=== PATIENT | male | born 1960 | race Caucasian/White ===

== ENCOUNTER 2020-05-19 16:28 | Outpatient (REF) | payer OTHER, SELFPAY ==
--- NOTE | 2020-05-19 16:34 | XR_ITS ---
EXAMINATION: XR CHEST CLINICAL INFORMATION: Shortness of breath COMPARISON: 06/07/2016 TECHNIQUE: 2 views of the chest were obtained. FINDINGS: No significant abnormality is noted involving the heart, lungs, mediastinum, bony thorax or soft tissues. XR/XR chest 2V IMPRESSION: No acute cardiopulmonary process.
== END 2020-05-19 16:29 | disposition home or self-care (01) ==
LOC: HO.HMGCX 16:28
PROVIDERS: PCP Nurse Practitioner Family; Visit Provider Hospitalist
DX: R06.02 Shortness of breath (principal)
CPT/HCPCS: 71046

== ENCOUNTER → 2020-06-08 08:33 | Outpatient (REF) | payer OTHER, SELFPAY ==
--- NOTE | 2020-06-08 08:37 | ECG_ITS ---
Hook-up date: 2020-06-08 09:40:00 Duration: 27:03:00 Test Indications: SHORTNESS OF BREATH Medications: 78455 QRS complexes 26 Ventricular ectopics which represent <1 % of total QRS comp. 24 Supraventricular ectopics which represent <1 % of total QRS comp. * Paced QRS complexs which represent % of total QRS comp. VENTRICULAR ECTOPY 26 Isolated 0 Bigeminal Cycles 0 Couplets 0 Runs 0 Beats in Runs * Beats LONGEST at * BPM at :: -- * Beats FASTEST at * BPM at :: -- SUPRAVENTRICULAR ECTOPY 9 Isolated 1 Couplets 2 Runs 13 Beats in Runs 7 Beats LONGEST at 75 BPM at 11:21:40 2020-06-08 6 Beats FASTEST at 123 BPM at 18:05:30 2020-06-08 HEART RATES 51 MIN at 00:05:49 2020-06-09 71 AVG 108 MAX at 09:41:19 2020-06-08 LONGEST RR 1.2000 secs at 00:05:49 2020-06-09 S-T LEVELS Channel 1 - 128 mm at 09:40:00 2020-06-08 - 128 mm at 09:40:00 2020-06-08 Channel 2 - 128 mm at 09:40:00 2020-06-08 - 128 mm at 09:40:00 2020-06-08 Channel 3 - 128 mm at 02:85:91 -- - 128 mm at 02:85:91 Basic rhythm Normal sinus rhythm Baseline BBB Rare ectopics Patient reported symptom of constantine discomfort correlated with NSR Referred By: Kenan Cueto Overread By: CALEB MOULTON MD
--- NOTE | 2020-06-08 08:37 | CA_ITS ---
Transthoracic Echocardiogram Patient (Last, First, Middle): Sanket Nazario, Gender: Male Date of : 1960 Age: 59 Procedure Date: 06/08/2020 Procedure Type: Transthoracic Echocardiogram Location: OP Height: 177.8 cm Weight: 117.94 kg BSA: 2.33 m2 Heart Rate: bpm BP: 118 / 70 mmHg Print Project Manager: ARYAN Referring MD: Kenan Cueto DO Symptoms: R06.02 - Shortness of breath Study Quality: Fair Conclusions: - 1. Normal LV systolic function with mild LVH 2. Normal cardiac valvular Doppler 3. Normal RV systolic pressure 4. No pericardial effusion Findings Left Ventricle Normal left ventricular size and systolic function. There is mildly increased left ventricular wall thickness. The visually estimated ejection fraction is between 60-65%. Regional wall motion abnormalities can not be excluded due to suboptimal endocardial definition. Diastolic function is normal for age. Right Ventricle Mildly increased right ventricular cavity size. Atria The left atrium is likely dilated. Interatrial shunt cannot be excluded. The right atrium was not well visualized. Aortic Valve The aortic valve structure and function is likely normal. There is no aortic valve stenosis. There is no aortic valve regurgitation. Mitral Valve Normal mitral valve structure and function. There is trace mitral valve regurgitation. There is no mitral valve stenosis. Pulmonic Valve The pulmonic valve was not well visualized. Tricuspid Valve Likely normal tricuspid valve structure and function. There is trace tricuspid valve regurgitation. The right ventricular systolic pressure is normal. The right ventricular systolic pressure is 21 mmHg. There is no evidence of pulmonary hypertension. Great Vessels The aorta was not well visualized. The pulmonary artery was not well visualized. Venous The inferior vena cava is normal in size and collapses greater than 50% with inspiration. Pericardium/Pleural There is no evidence of pericardial effusion. Prior Study Comparison No significant change compared to prior study. Measurements 2D Linear Measurements IVSd: 1.13 0.6-0.9/0.6-1.0 cm LVIDd: 4.99 3.9-5.3/4.2-5.9 cm LVIDd Index: 2.14 2.4-3.2/2.2-3.1 cm/m2 LVIDs: 3.03 2.0-3.6 cm LVPWd: 1.10 0.7-1.1 cm Ao Root: 3.70 2.1-3.5 cm LA Diam: 3.80 2.7-3.8/3.0-4.0 cm LAIDs Index: 1.63 1.5-2.3 cm/m2 LV Mass: 302.55 67-162/88-224 g LV Mass Index: 129.85 43-95/49-115 g/m2 LVOT Diam: 2.00 3.0+(-)1.3 cm Mitral Valve MV Pk E: 0.72 MV PK A: 0.50 MV Decel Time: 145.00 E/A: 1.40 E'Lateral: 11.20 E'Medial: 7.16 E/E' Med: 10.10 E/E' Lat: 6.50 PHT: 43.00 MVA PHT: 5.12 Decel [place]: 4.98 Aortic Valve AoV Pk López: 1.24 AoV Pk Grad: 6.00 LVOT LVOT Pk López: 1.29 LVOT Mn López: 0.82 LVOT VTI: 0.29 LVOT Pk Grad: 7.00 LVOT Mn Grad: 3.00 LVOT Diam: 2.00 LVOT Area: 3.14 Diastolic Function MV Pk E: 0.72 MV Pk A: 0.50 E/A: 1.40 E'Medial: 7.16 E/E' Med: 10.10 E' Laterial: 11.20 E/E' Lat: 6.50 IVC Diam Exp: 1.53 Tricuspid Valve TR Pk López: 2.12 TR Pk Grad: 18.00 RA Press: 3.00 RVSP: 21.00 IVC Diam Exp: 1.53 Great Vessels Aorta Ao Root-2D: 3.70 2.0-3.7 cm Ao Asc: 3.50 2.1-3.4 cm Updated in Other Vendor System with Status of Final Anil Sloan MD electronically signed on 06/09/2020 2:54:07 PM with status of Final
== END ==
LOC: HO.CARD 08:33
PROVIDERS: Visit Provider Hospitalist
DX: R06.02 Shortness of breath (principal); R53.83 Other fatigue
CPT/HCPCS: 93225; 93226; 93306

== ENCOUNTER → 2020-06-20 08:24 | Outpatient (BNVA) | payer OTHER, SELFPAY | PROVIDERS: PCP Nurse Practitioner Family; Referring Provider Nurse Practitioner Family; Visit Provider Nurse Practitioner Family | DX: Z76.89 Persons encountering health services in other specified circumstances (principal) ==

== ENCOUNTER → 2020-07-26 12:45 | Outpatient (BNVA) | payer OTHER, SELFPAY | PROVIDERS: PCP Nurse Practitioner Family; Visit Provider Physician Assistant | DX: Z76.89 Persons encountering health services in other specified circumstances (principal) ==

== ENCOUNTER → 2020-08-11 08:23 | Outpatient (BNVA) | payer OTHER, SELFPAY | PROVIDERS: PCP Nurse Practitioner Family; Visit Provider Physician Assistant | DX: Z76.89 Persons encountering health services in other specified circumstances (principal) ==

== ENCOUNTER 2020-08-24 14:28 | Outpatient (REF) | payer OTHER, SELFPAY ==
[2020-08-24 15:33] LABS: MANUAL DIFF FLAG NO
[2020-08-24 15:34] LABS: Basophils Percent Auto 0.5 % (0-2); Eosinophils Absolute Auto 0.1 X10*3/uL (0.0-0.4); Eosinophils Percent Auto 1.5 % (0-4); Hemoglobin 14.6 g/dl (14.0-18.0); Imm Gran Abs Auto 0.01 X10*3/uL (0.00-0.03); Imm Gran Pct Auto 0.2 % (0.0-0.4); Lymphocytes Absolute Auto 1.2 X10*3/uL (1.2-4.9); Mean Corpuscular Volume 91.3 fL (80-98); Mean Platelet Volume 9.5 fL (9.4-12.4); Monocytes Absolute Auto 0.5 X10*3/uL (0.1-1.2); Monocytes Percent Auto 7.5 % (2-11); Neutrophils Absolute Auto 4.3 X10*3/uL (2.0-8.3); Neutrophils Percent Auto 70.3 % (45-73); Platelet Count 252 X10*3/uL (160-400); Red Blood Count 4.71 X10*6/uL (4.60-5.80); Red Cell Distribution Width 11.9 % (11.0-16.0); White Blood Count 6.1 X10*3/uL (4.8-10.8)
[2020-08-24 15:46] LABS: Estimated Average Glucose 108 mg/dL; Hemoglobin A1c % 5.4 %
[2020-08-24 16:02] LABS: Alanine Aminotransferase 43 U/L (0-40); Albumin Level 4.5 g/dL (3.5-5.0); Alkaline Phosphatase 81 U/L (39-117); Anion Gap 12 (12-20); Aspartate Amino Transferase 23 U/L (5-37); Bilirubin Total 0.9 mg/dL (0.0-1.0); Blood Urea Nitrogen 19 mg/dL (9-16); C Reactive Protein 0.36 mg/dL (< or = 0.50); Calcium 9.3 mg/dL (8.4-10.2); Carbon Dioxide 30 mmol/L (22-29); Chloride 102 mmol/L (96-108); Cholesterol 105 mg/dL; Estimated Glomerular Filt Rate > 60; Glucose Random 115 mg/dL (60-115); HDL Cholesterol 31 mg/dL; Iron 59 mcg/dL (45-160); LDL Cholesterol Calculated 59 mg/dl; Percent Iron Saturation 18 % (15-50); Potassium 3.9 mmol/l (3.3-5.1); Sodium 140 mmol/L (135-145); Total Iron Binding Capacity 328 mcg/dL (228-428); Total Protein 7.1 g/dL (6.5-8.0); Triglycerides 79 mg/dL; Unsaturated Iron Binding 269 ug/dL
[2020-08-24 16:25] LABS: Ferritin 271 ng/mL (20-250); TSH reflex Free T4 0.98 mIU/mL (0.32-4.0); Vitamin D 25-OH Total 24.5 ng/mL (>30)
[2020-08-24 16:35] LABS: Folate 8.4 ng/mL (> or = 4.0); Vitamin B12 280 pg/mL (200-900)
[2020-08-25 10:52] LABS: Insulin Level Total 45.5 uIU/mL
[2020-08-25 15:42] LABS: Calcium (PTHI) 9.7 mg/dL (8.6-10.3); PTHI 60 pg/mL (14-64)
[2020-08-27 01:53] LABS: Zinc 75 mcg/dL (60-130)
[2020-08-29 12:27] LABS: Vitamin B1 9 nmol/L (8-30)
[2020-08-31 09:57] LABS: Vitamin A 43 mcg/dL (38-98)
== END 2020-08-24 14:29 | disposition home or self-care (01) ==
LOC: HO.LAB 14:28
PROVIDERS: PCP Nurse Practitioner Family; Visit Provider Physician Assistant
DX: E66.9 Obesity, unspecified (principal); Z68.35 Body mass index [BMI] 35.0-35.9, adult; Z90.3 Acquired absence of stomach [part of]; Z98.84 Bariatric surgery status; Z98.890 Other specified postprocedural states
CPT/HCPCS: 36415; 80053; 80061; 82306; 82607; 82728; 82746; 83036; 83525; 83540; 83970; 84425; 84443; 84590; 84630; 85025; 86140

== ENCOUNTER → 2020-09-01 08:09 | Outpatient (BNVA) | payer OTHER, SELFPAY | PROVIDERS: PCP Nurse Practitioner Family; Visit Provider Dietitian, Registered ==

== ENCOUNTER → 2020-09-22 08:15 | Outpatient (BNVA) | payer OTHER, SELFPAY | PROVIDERS: PCP Nurse Practitioner Family; Visit Provider Physician Assistant ==

== ENCOUNTER → 2020-09-25 08:33 | Outpatient (BNVA) | payer OTHER, SELFPAY | PROVIDERS: PCP Nurse Practitioner Family; Visit Provider Physician Assistant ==

== ENCOUNTER → 2020-10-20 08:20 | Outpatient (BNVA) | payer OTHER, SELFPAY | PROVIDERS: PCP Nurse Practitioner Family; Visit Provider Physician Assistant ==

== ENCOUNTER → 2020-11-23 10:04 | Outpatient (BNVA) | payer OTHER, SELFPAY | PROVIDERS: PCP Nurse Practitioner Family; Visit Provider Dietitian, Registered | DX: E66.9 Obesity, unspecified (principal); Z68.31 Body mass index [BMI] 31.0-31.9, adult | CPT/HCPCS: 97803 ==

== ENCOUNTER → 2020-12-22 08:46 | Outpatient (BNVA) | payer OTHER, SELFPAY | PROVIDERS: PCP Nurse Practitioner Family; Visit Provider Physician Assistant ==

== ENCOUNTER → 2021-01-26 10:05 | Outpatient (BNVA) | payer OTHER, SELFPAY | PROVIDERS: PCP Nurse Practitioner Family; Referring Provider Nurse Practitioner Family; Visit Provider Physician Assistant ==

== ENCOUNTER → 2021-02-27 08:11 | Outpatient (BNVA) | payer OTHER, SELFPAY | PROVIDERS: PCP Nurse Practitioner Family; Visit Provider Dietitian, Registered | DX: E66.9 Obesity, unspecified (principal); Z68.29 Body mass index [BMI] 29.0-29.9, adult | CPT/HCPCS: 97803 ==

== ENCOUNTER → 2021-04-06 08:30 | Outpatient (BNVA) | payer OTHER, SELFPAY | PROVIDERS: PCP Nurse Practitioner Family; Referring Provider Nurse Practitioner Family; Visit Provider Physician Assistant ==

== ENCOUNTER → 2021-05-16 08:33 | Outpatient (BNVA) | payer OTHER, SELFPAY | PROVIDERS: PCP Nurse Practitioner Family; Referring Provider Nurse Practitioner Family; Visit Provider Physician Assistant ==

== ENCOUNTER → 2021-07-06 11:15 | Outpatient (BNVA) | payer OTHER, SELFPAY | PROVIDERS: PCP Nurse Practitioner Family; Referring Provider Nurse Practitioner Family; Visit Provider Physician Assistant ==

== ENCOUNTER → 2021-08-09 08:32 | Outpatient (BNVA) | payer OTHER, SELFPAY | PROVIDERS: PCP Nurse Practitioner Family; Referring Provider Nurse Practitioner Family; Visit Provider Physician Assistant ==

== ENCOUNTER → 2021-11-05 08:34 | Outpatient (BNVA) | payer OTHER, SELFPAY | PROVIDERS: PCP Nurse Practitioner Family; Visit Provider Physician Assistant | DX: Z13.89 Encounter for screening for other disorder (principal) ==

== ENCOUNTER 2021-11-14 09:15 | Outpatient (REF) | payer OTHER, SELFPAY ==
[2021-11-14 09:46] LABS: IDNOW Serial# 08D9AD1C
[2021-11-14 09:47] LABS: COVID-19 Test Positive (Negative)
== END 2021-11-14 09:16 | disposition home or self-care (01) ==
LOC: HO.LAB 09:15
PROVIDERS: PCP Nurse Practitioner Family; Visit Provider Internal Medicine
DX: Z20.822 Contact with and (suspected) exposure to COVID-19 (principal)
CPT/HCPCS: 87635; C9803

== ENCOUNTER → 2021-12-03 08:29 | Outpatient (BNVA) | payer OTHER, SELFPAY | PROVIDERS: PCP Nurse Practitioner Family; Visit Provider Physician Assistant | DX: E66.9 Obesity, unspecified (principal) ==

== ENCOUNTER → 2021-12-11 08:36 | Outpatient (BNVA) | payer OTHER, SELFPAY | PROVIDERS: PCP Nurse Practitioner Family; Visit Provider Nurse Practitioner Family | DX: Z13.89 Encounter for screening for other disorder (principal) ==

== ENCOUNTER 2021-12-26 08:41 | Outpatient (REF) | payer OTHER, SELFPAY ==
[2021-12-26 11:36] LABS: Appearance Urine CLEAR; Color Urine YELLOW; Glucose Urine UA NEG (NEG); Leukocyte Esterase Urine NEG (NEG); Nitrite Urine NEG (NEG); PH 5.5 (5.0-8.0); Specific Gravity - Urine >= 1.030 (1.005-1.025); Urine Blood NEG (NEG); Urine Ketones NEG (NEG); Urine Protein NEG (NEG-TRACE)
[2021-12-26 12:19] LABS: Prostate Specific Antigen Scr 3.13 ng/mL (<0.05-4.0); TSH reflex Free T4 1.18 uIU/mL (0.32-4.0)
[2021-12-26 12:25] LABS: Alanine Aminotransferase 28 U/L (0-40); Albumin Level 4.1 g/dL (3.5-5.0); Alkaline Phosphatase 68 U/L (39-117); Anion Gap 12 (12-20); Aspartate Amino Transferase 17 U/L (5-37); Bilirubin Total 0.7 mg/dL (0.0-1.0); Blood Urea Nitrogen 18 mg/dL (9-16); Calcium 9.2 mg/dL (8.4-10.2); Carbon Dioxide 24 mmol/L (22-29); Chloride 107 mmol/L (96-108); Cholesterol 138 mg/dL; Estimated Glomerular Filt Rate > 60; Glucose Fasting 101 mg/dL (60-99); HDL Cholesterol 42 mg/dL; LDL Cholesterol Calculated 84 mg/dl; Potassium 3.8 mmol/L (3.3-5.1); Sodium 139 mmol/L (135-145); Total Protein 6.8 g/dL (6.5-8.0); Triglycerides 64 mg/dL
== END 2021-12-26 08:42 | disposition home or self-care (01) ==
LOC: HO.HMGCLDS 08:41
PROVIDERS: Visit Provider Nurse Practitioner Family
DX: Z00.00 Encounter for general adult medical examination without abnormal findings (principal); Z12.5 Encounter for screening for malignant neoplasm of prostate
CPT/HCPCS: 36415; 80053; 80061; 81003; 84153; 84443

== ENCOUNTER → 2022-02-11 11:01 | Outpatient (REF) | payer OTHER, SELFPAY | LOC: HO.SL 11:01 | PROVIDERS: PCP Nurse Practitioner Family; Visit Provider Nurse Practitioner Family | DX: E66.9 Obesity, unspecified (principal); G47.33 Obstructive sleep apnea (adult) (pediatric); R53.83 Other fatigue; R06.83 Snoring | CPT/HCPCS: 95806 ==

== ENCOUNTER 2022-08-28 15:12 | Outpatient (REF) | payer OTHER, SELFPAY ==
--- NOTE | ~2022-08-28 | MR_ITS ---
MRI OF THE BRAIN WITHOUT IV CONTRAST INDICATION: Speech disturbance. COMPARISON: None available. TECHNIQUE: Multiplanar multisequence MR imaging of the brain was obtained without IV contrast. FINDINGS: There is no hydrocephalus, extra-axial surface collection, or herniation. There is mild chronic microangiopathy. The major flow voids at the skull base are preserved. There is no acute infarct on diffusion-weighted imaging. There is no intracranial hemorrhage on the gradient recalled echo acquisition. The midline structures are normal. The cerebellar tonsils are normally positioned. The cerebellum and brainstem are normal. The craniocervical junction is normal. Osseous marrow signal intensity is homogenous. There is a 3.8 cm simple appearing lipoma within the posterior right scalp. MR/MR head/brain wo con IMPRESSION: - No acute intracranial findings. - There is mild chronic microangiopathy. - There is a 3.8 cm simple appearing lipoma within the posterior right scalp.
== END 2022-08-28 15:13 | disposition home or self-care (01) ==
LOC: HO.MRI 15:12
PROVIDERS: PCP Nurse Practitioner Family; Visit Provider Nurse Practitioner Family
DX: R47.89 Other speech disturbances (principal); R41.3 Other amnesia; Z82.0 Family history of epilepsy and other diseases of the nervous system
CPT/HCPCS: 70551

== ENCOUNTER → 2022-09-23 08:45 | Outpatient (BNVA) | payer OTHER, SELFPAY | PROVIDERS: PCP Nurse Practitioner Family; Referring Provider Nurse Practitioner Family; Visit Provider Internal Medicine | DX: I25.10 Atherosclerotic heart disease of native coronary artery without angina pectoris (principal); I10 Essential (primary) hypertension; E78.00 Pure hypercholesterolemia, unspecified | CPT/HCPCS: 93005 ==

== ENCOUNTER 2022-10-26 15:57 | Outpatient (REF) | payer OTHER, SELFPAY ==
[2022-10-26 16:42] LABS: Influenza A PCR NEGATIVE (Negative); Influenza B PCR NEGATIVE (Negative); Resp Syncy Virus RNA Qual PCR NEGATIVE (Negative); SARS COV2 PCR INHOUSE NEGATIVE (Negative)
== END 2022-10-26 15:58 | disposition home or self-care (01) ==
LOC: HO.LNP 15:57
PROVIDERS: Visit Provider Physician Assistant Medical
DX: R05.9 Cough, unspecified (principal); Z20.822 Contact with and (suspected) exposure to COVID-19
CPT/HCPCS: 0241U

== ENCOUNTER 2023-09-29 09:07 | Outpatient (AMB) | payer OTHER, SELFPAY ==
--- NOTE | 2023-09-29 09:08 | MHC.OFFVIS ---
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 Allergies codeine Allergy (Unknown, Verified 09/29/23 09:11) due to Hx of addiction, stays away from opiods Codeine Sulfate Allergy (Unknown, Uncoded 09/29/23 09:11) hx of etoh abuse, pt does not want to be prescribed opiods OPIODS Allergy (Unknown, Uncoded 09/29/23 09:11) hx of etoh abuse, pt does not want to be prescribed opiods Medication List - Last Reconciled 09/29/23 by Medardo Epperson MD atorvastatin 40 mg PO DAILY 90 days benzonatate 200 mg PO BID PRN hydrochlorothiazide 25 mg PO DAILY irbesartan 300 mg PO DAILY HPI HPI Comments History of Present Illness Details Sanket returns for follow-up regarding coronary artery disease. To recall, strong family history of cardiac issues in family members including father, sister. Patient himself with multiple cardiovascular risk factors including obesity, hypertension, dyslipidemia, NIESHA. Based on calcium scoring, he does have CAD. No clear-cut angina. Unfortunately, he has gained a lot of weight. [facility] Medical History AA (alcohol abuse) Coronary artery calcification seen on CT scan Hemorrhoid Melanoma Obesity Surgical History Hx of wisdom tooth extraction Family History Mother Alzheimer disease COPD (chronic obstructive pulmonary disease) Father No problems noted. Son No problems noted. Daughter No problems noted. Sister Myocardial infarction Other Mental health disorder Substance use disorder Social History Housing: House Alcohol intake: former Patient Tobacco Use Status: Current someday Tobacco user Tobacco use type: Cigar e-Cigarette/Vaping Use: Never Used Second Hand Smoke Exposure: No Current occupational status: employed Cognitive needs: No Hearing needs: No Vision needs: No Review of Systems Const Denies weakness ENT Denies dizziness Card Denies chest pain with activity, Denies syncope, Denies rapid heart rate, Denies pedal edema, Denies edema, Denies leg edema, Denies lightheadedness, Denies palpitations and Denies orthopnea Resp Denies cough GI Denies hematochezia and Denies change in stool character Musc Denies abnormal gait, Denies muscle cramps, Denies muscle weakness, Denies numbness, Denies radiating pain into limb and Denies tingling Neuro Denies abnormal gait, Denies dizziness, Denies syncope, Denies numbness, Denies tingling and Denies weakness Endo Denies palpitations Physical Exam Vital Signs: Last Vital Signs Pulse 69 09/29/23 09:10 BP 130/86 09/29/23 09:10 BMI result Body Mass Index 36.1 Const General: comfortable and no acute distress Orientation/consciousness: patient oriented x3 HEENT Other: Unremarkable Head: Yes normal to inspection Neck Neck: Yes normal visual inspection Chest Chest palpation & inspection: normal inspection of the chest Resp Auscultation: clear to auscultation bilaterally Cardio Palpation: normal PMI Heart sounds: S1 normal heart sound present, S2 normal heart sound present, no gallops, no murmurs and no rubs GI Palpation (GI): Soft to palpation Back/Spine/Pelvis Other: unremarkable Skin General skin exam: no rashes or lesions noted Neuro General: patient oriented x3 Extrem General: Yes normal to inspection Psych Mental Status: mental status grossly normal Office Procedures EKG Details: EKG with sinus rhythm at 69/Min; incomplete right bundle-branch block pattern; [place] [address]-[id number], Complete Assessment & Plan Assessment & Plan (1) Coronary artery calcification seen on CT scan: Code(s): I25.10 - Atherosclerotic heart disease of [place] coronary artery without angina pectoris (2) Hypertension: Code(s): I10 - Essential (primary) hypertension Qualifiers: Hypertension type: primary hypertension Qualified Code(s): I10 - Essential (primary) hypertension (3) Hypercholesteremia: Code(s): E78.00 - Pure hypercholesterolemia, unspecified Plan Cardiac studies reviewed. Echocardiogram from 2019 with LVEF of 60-65% and otherwise unremarkable. In the exercise stress test from 2019, he was able to exercise on Rom protocol for 7 minutes and 2 seconds and reached 8.6 Mets. No angina and no EKG evidence of ischemia. Prior calcium scoring CT scan with a score of 58. It was repeated last year and that showed score of 134 distributed between the LAD and circumflex. Findings discussed with patient. He is aware of the coronary disease findings. He understands the main issues his weight as it has been up and down. He lost about 50 lb or so but then gained almost all of it back. He also drives to [place] few times a month which adds more stress an interface lifestyle. Strongly recommend that he loses as much weight is reasonably possible and willing try again. Blood pressure stable on current meds. We need to check lipids again. He is on statins. May need adjustments accordingly. With regard to NIESHA history, he does not like CPAP. However, after he lost lot of weight sleep apnea apparently did improve but there is high good chance that it came back as he gained the weight back. Again weight loss is the main goal to sort all these out. We had a long discussion about the above and he understands. Follow-up in 6 months. Advised to get some labs done. Total time spent including review of data, counseling, documentation, coordination of care 32 minutes. Orders: Orders Lipid Panel 01/22/23 I10 - Essential (primary) hypertension Coding Level of Care Code Est Pt Level 4 (69093) Diagnoses Coronary artery calcification seen on CT scan I25.10 Primary hypertension I10 Hypertension type: primary hypertension Hypercholesteremia E78.00 CPT Codes EKG - CPT: 31098-Debavwuiqtifquyve, Complete ([id number])
[2023-09-29 09:10] VITALS: BP 130/86; PULSE 69; BMI 36.1
== END 2023-09-29 09:37 | disposition home or self-care (01) ==
PROVIDERS: Visit Provider Internal Medicine
DX: I25.10 Atherosclerotic heart disease of native coronary artery without angina pectoris (principal); I10 Essential (primary) hypertension; E78.00 Pure hypercholesterolemia, unspecified
CPT/HCPCS: 93010; 99214

== ENCOUNTER → 2023-09-29 09:07 | Outpatient (BNVA) | payer OTHER, SELFPAY | PROVIDERS: Visit Provider Internal Medicine | DX: I25.10 Atherosclerotic heart disease of native coronary artery without angina pectoris (principal); I10 Essential (primary) hypertension; E78.00 Pure hypercholesterolemia, unspecified | CPT/HCPCS: 93005 ==

== ENCOUNTER 2023-11-12 08:10 | Outpatient (REF) | payer OTHER, SELFPAY ==
[2023-11-12 10:20] LABS: MANUAL DIFF FLAG NO
[2023-11-12 10:28] LABS: Appearance Urine Clear; Color Urine Yellow; Glucose Urine UA Negative (Negative); Leukocyte Esterase Urine Negative (Negative); Nitrite Urine Negative (Negative); PH 6.5 (5.0-9.0); Urine Blood Negative (Negative); Urine Ketones Negative (Negative); Urine Protein Negative (Neg-Trace)
[2023-11-12 10:33] LABS: Basophils Absolute Auto 0.1 X10*3/uL (0.0-0.2); Basophils Percent Auto 0.7 % (0-2); Eosinophils Absolute Auto 0.2 X10*3/uL (0.0-0.4); Eosinophils Percent Auto 2.9 % (0-4); Hematocrit 43.2 % (42.0-52.0); Hemoglobin 14.8 g/dl (14.0-18.0); Imm Gran Abs Auto 0.09 X10*3/uL (0.00-0.03); Imm Gran Pct Auto 1.2 % (0.0-0.4); Lymphocytes Absolute Auto 1.4 X10*3/uL (1.2-4.9); Lymphocytes Percent Auto 17.9 % (20-40); Mean Corpuscular HGB Conc 34.3 g/dl (31.0-36.0); Mean Corpuscular Hemoglobin 31.1 pg (27.0-33.0); Mean Corpuscular Volume 90.8 fL (80.0-98.0); Mean Platelet Volume 9.3 fL (9.4-12.4); Monocytes Percent Auto 13.2 % (2-11); Neutrophils Absolute Auto 4.9 x10*3/uL (2.0-8.3); Neutrophils Percent Auto 64.1 % (45-73); Platelet Count 227 X10*3/uL (160-400); Red Blood Count 4.76 X10*6/uL (4.60-5.80); Red Cell Distribution Width 12.7 % (11.0-16.0); White Blood Count 7.6 X10*3/uL (4.8-10.8)
[2023-11-12 11:29] LABS: Alanine Aminotransferase 36 U/L (0-40); Albumin Level 3.9 g/dL (3.5-5.0); Alkaline Phosphatase 80 U/L (39-117); Anion Gap 7 (12-20); Aspartate Amino Transferase 21 U/L (5-37); Bilirubin Total 0.9 mg/dL (0.0-1.0); Blood Urea Nitrogen 16 mg/dL (9-16); Carbon Dioxide 30 mmol/L (22-29); Chloride 105 mmol/L (96-108); Cholesterol 131 mg/dL (<200); Estimated Glomerular Filt Rate > 60; Glucose Fasting 109 mg/dL (60-99); HDL Cholesterol 39 mg/dL (>40); LDL Cholesterol Calculated 73 mg/dL (<100); Potassium 4.2 mmol/L (3.3-5.1); Sodium 138 mmol/L (135-145); Total Protein 6.6 g/dL (6.5-8.0); Triglycerides 98 mg/dL (<150)
[2023-11-12 11:46] LABS: TSH reflex Free T4 1.09 uIU/mL (0.32-4.0)
== END 2023-11-12 08:11 | disposition home or self-care (01) ==
LOC: HO.HMGCLDS 08:10
PROVIDERS: PCP Nurse Practitioner Family; Visit Provider Nurse Practitioner Family
DX: Z12.5 Encounter for screening for malignant neoplasm of prostate (principal); I10 Essential (primary) hypertension
CPT/HCPCS: 36415; 80053; 80061; 81003; 84153; 84443; 85025

== ENCOUNTER 2023-11-18 13:54 | Outpatient (AMB) | payer OTHER, SELFPAY ==
[2023-11-18 13:55] VITALS: BP 130/80; PULSE 86; O2SAT 98; BMI 35.4
--- NOTE | 2023-11-18 13:55 | MHC.PC.OV ---
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 Accompanied by: Self / Same As Patient Allergies codeine Allergy (Unknown, Verified 11/18/23 13:56) due to Hx of addiction, stays away from opiods Codeine Sulfate Allergy (Unknown, Uncoded 09/29/23 09:11) hx of etoh abuse, pt does not want to be prescribed opiods OPIODS Allergy (Unknown, Uncoded 09/29/23 09:11) hx of etoh abuse, pt does not want to be prescribed opiods Medication List - Last Reconciled 11/18/23 by ELOISE Abdullahi atorvastatin 40 mg PO DAILY 90 days hydrochlorothiazide 25 mg PO DAILY irbesartan 300 mg PO DAILY Tobacco use date assessed: 11/18/23 Dental Screening Dental Screen Date: 11/18/23 Did you have a dental visit in the last 12 months?: Yes Did you have a dental problem in the last 6 months where you did not have access to dental care?: No Was dental information given to patient?: Patient has dentist HPI F/U on cough that has been present for 7+mnths HPI Details Pt c/o cough for approximately 1 year. He reports that the cough can be either dry or wet. Pt reports that this cough happens at different times of day and has no known triggers. He describes a tickle in his throat followed by a deep cough. Pt reportedly had a chest XR in July which was negative, missing results. ? relation to long COVID. He states that tessalon perles did help but the cough returned after finishing the prescription. On exam today, with inhalation and exhalation, pt developed cough (bronchospastic like). ? relation to irbesartan use. Will order chest CT, blood work, and PFT testing. Denies fever, chills, chest pain, and shortness of breath. [facility] Medical History AA (alcohol abuse) Coronary artery calcification seen on CT scan Hemorrhoid Melanoma Obesity Surgical History Hx of wisdom tooth extraction Family History Mother Alzheimer disease COPD (chronic obstructive pulmonary disease) Father No problems noted. Son No problems noted. Daughter No problems noted. Sister Myocardial infarction Other Mental health disorder Substance use disorder Social History Housing: House Alcohol intake: former Patient Tobacco Use Status: Current someday Tobacco user Tobacco use type: Cigar e-Cigarette/Vaping Use: Never Used Second Hand Smoke Exposure: No Current occupational status: employed Cognitive needs: No Hearing needs: No Vision needs: No Questionnaire PHQ-9 Over the last 2 weeks, how often have you been bothered by any of the following problems? 1. Little interest or pleasure in doing things: not at all 2. Feeling down, depressed, or hopeless: not at all 3. Trouble falling or staying asleep, or sleeping too much: not at all 4. Feeling tired or having little energy: not at all 5. Poor appetite or overeating: not at all 6. Feeling bad about yourself - or that you are a failure or have let yourself or your family down: not at all 7. Trouble concentrating on things, such as reading the newspaper or watching television: not at all 8. Moving or speaking so slowly that other people could have noticed. Or the opposite - being so fidgety or restless that you have been moving around a lot more than usual: not at all 9. Thoughts that you would be better off or of hurting yourself in some way: not at all Total score: 0 Depression Screening Interpretation: Negative Depression Screening Done: Yes 40272 - PHQ-9 Billing: Yes Source: Developed by Drs. Frankie Guillen, Atiya Stafford, Torito Wagner and colleagues, with an educational kyler from [employer]. Thrive Questionnaire Date Thrive assessed: 11/18/23 I am a: Patient What is your living situation today?: I have a steady place to live Within the past 12 months, did the food you bought not last and you didn't have the money to get more?: Never true Within the past 12 months, did you worry whether your food would run out before you got money to buy more?: Never true Do you have trouble paying for medicines?: No Do you have trouble getting transportation to medical appointments?: No Do you have trouble paying your heating and electricity bill?: No Do you have trouble taking care of your child, family member or friend?: No Do you have trouble with day-to-day activities such as bathing, preparing meals, shopping, managing finances, etc.?: No Are you currently unemployed and looking for a job?: No Are you interested in more education?: No Please select the resources that you would like help with: None Currently or been in a relationship where the following occur: no concerns reported THRIVE Score: 0 AUDIT C Alcohol Use Questionnaire (AUDIT-C) 1. How often do you have a drink containing alcohol?: Never 3. How often do you have six or more drinks on one occasion?: Never Total Score: 0 Score Reviewed/Action Taken: Yes REBEKA-7 AMB Questionnaire REBEKA-7 Date REBEKA - 7 assessed: 11/18/23 Feeling nervous, anxious, or on edge: 0 = Not at all Not being able to stop or control worryin = Not at all Worrying too much about different things: 0 = Not at all Trouble relaxin = Not at all Being so restless that it is hard to sit still: 0 = Not at all Becoming easily annoyed or irritable: 0 = Not at all Feeling afraid as if something awful might happen: 0 = Not at all Total REBEKA-7 score (0-4 normal; 5-9 mild; 10-14 moderate; 15-21 severe): 0 Source: Developed by Drs. Frankie Guillen, Atiya Stafford, Torito Wagner and colleagues, with an educational kyler from [employer]. REBEKA-7 Assessment Billing REBEKA-7 Assessment Tool: REBEKA-7 Assessment 87356 Review of Systems Const Reports as per HPI Physical exam (Primary Care) Vital Signs: Last Vital Signs Pulse 86 11/18/23 13:55 BP 130/80 11/18/23 13:55 Pulse Ox 98 11/18/23 13:55 Oxygen Delivery Method Room Air 11/18/23 13:55 BMI result Body Mass Index 35.4 Tobacco/Smoking Status: Tobacco use Status Tobacco use date assessed 11/18/23 11/18/23 13:57 Patient Tobacco Use Status Current someday Tobacco 11/18/23 13:57 Tobacco use type Cigar 11/18/23 13:57 e-Cigarette/Vaping Use Never Used 11/18/23 13:57 PHQ-9: PHQ-9 Score PHQ-9: Total score 0 11/18/23 14:11 Depression Screening Interpretation: Negative Thrive Assessment: Date of Thrive Assessment Date Thrive assessed 11/18/23 11/18/23 14:11 Currently or been in a relationship where the following occur: no concerns reported Const General: cooperative Nutritional Appearance: obese Orientation/consciousness: patient oriented x3 Resp Other: bronchospastic cough during exam Effort & Inspection: normal respiratory effort and Actively coughing Auscultation: clear to auscultation bilaterally Cardio Rate: regular rate Rhythm: regular rhythm Heart sounds: S1 normal heart sound present and S2 normal heart sound present Neuro General: patient oriented x3 Psych Appearance: grossly normal Mental Status: mental status grossly normal Speech and movement: Normal speech and movement present Affect: normal affect Attitude: cooperative Thought process: Normal thought process present Thought content: Normal thought content present Insight: Good insight present (Psych) Judgement: Good judgement present (Psych) Assessment and Plan Assessment & Plan (1) Chronic cough: Code(s): R05.3 - Chronic cough Plan The patient agreed to the use of a medical transcription supervisor for this encounter. Scribed for ELOISE Smith by Luz Maria Fish medical transcription supervisor, on 11/18/2023 at 14:10 EST. Orders: Orders PFT pulmonary function test Today R05.3 - Chronic cough Resp Allergy Profile Region I Today R05.3 - Chronic cough Immunoglobulins,IgG IgA IgM Today R05.3 - Chronic cough Complete Blood Count Auto Diff Today R05.3 - Chronic cough CT chest wo IV con Today R05.3 - Chronic cough Immunoglobulin G Today R05.3 - Chronic cough Coding Level of Care Code Est Pt Level 3 (14661) Diagnoses Chronic cough R05.3 Additional Codes REBEKA-7 Assessment Billing - REBEKA-7 Assessment Tool: REBEKA-7 Assessment 15710 ([id number])
== END 2023-11-18 16:19 | disposition home or self-care (01) ==
LOC: HO.HMGC 13:54
PROVIDERS: PCP Nurse Practitioner Family; Visit Provider Nurse Practitioner Family
DX: R05.3 Chronic cough (principal)
CPT/HCPCS: 99213

== ENCOUNTER 2023-11-20 12:58 | Outpatient (REF) | payer OTHER, SELFPAY ==
[2023-11-20 16:04] LABS: MANUAL DIFF FLAG NO
[2023-11-20 16:12] LABS: Basophils Percent Auto 0.6 % (0-2); Eosinophils Absolute Auto 0.2 X10*3/uL (0.0-0.4); Eosinophils Percent Auto 2.5 % (0-4); Hematocrit 42.5 % (42.0-52.0); Hemoglobin 14.7 g/dl (14.0-18.0); Imm Gran Abs Auto 0.03 X10*3/uL (0.00-0.03); Imm Gran Pct Auto 0.5 % (0.0-0.4); Lymphocytes Absolute Auto 1.2 X10*3/uL (1.2-4.9); Lymphocytes Percent Auto 19.1 % (20-40); Mean Corpuscular HGB Conc 34.6 g/dl (31.0-36.0); Mean Corpuscular Hemoglobin 30.8 pg (27.0-33.0); Mean Corpuscular Volume 88.9 fL (80.0-98.0); Monocytes Absolute Auto 0.5 X10*3/uL (0.1-1.2); Monocytes Percent Auto 8.2 % (2-11); Neutrophils Absolute Auto 4.4 x10*3/uL (2.0-8.3); Neutrophils Percent Auto 69.1 % (45-73); Platelet Count 250 X10*3/uL (160-400); Red Blood Count 4.78 X10*6/uL (4.60-5.80); Red Cell Distribution Width 12.4 % (11.0-16.0); White Blood Count 6.3 X10*3/uL (4.8-10.8)
[2023-11-21 13:43] LABS: IgA 248 mg/dL (70-320); IgG 902 mg/dL (600-1540); IgM 112 mg/dL (50-300)
== END 2023-11-20 12:59 | disposition home or self-care (01) ==
LOC: HO.HMGCLDS 12:58
PROVIDERS: PCP Nurse Practitioner Family; Visit Provider Nurse Practitioner Family
DX: R05.3 Chronic cough (principal)
CPT/HCPCS: 36415; 82784; 85025

== ENCOUNTER 2024-01-07 13:08 | Outpatient (REF) | payer OTHER, SELFPAY ==
--- NOTE | ~2024-01-07 | CT_ITS ---
EXAMINATION: CT CHEST WITHOUT CONTRAST CLINICAL INFORMATION: Chronic cough, 63-year-old male. COMPARISON: CT chest 06/19/2015. Chest x-ray 05/19/2020. TECHNIQUE: Multidetector volumetric CT imaging of the chest was done. Axial MIP volume rendering provided. Sagittal and coronal reformatted images were obtained. This CT examination was performed using dose optimization techniques as appropriate, variously including the following: *Automated exposure control *Adjustment of mA and/or kV according to patient size (this includes techniques or standardized protocols for targeted exams where dose is matched to indication/reason for exam; i.e. extremities or head) *Use of iterative reconstruction technique DLP: 257 mGy-cm Please note, due to [employer] technical systems and internal issues, this examination was not available for dictation until 02/10/2024. FINDINGS: CERTIFIED MEDICAL TRANSCRIPTIONIST: No findings. LUNGS: -Lungs are clear bilaterally and free from consolidation, interstitial disease or groundglass opacities. -Mild parenchymal scarring with focal traction bronchiectasis is present in the posterior basal left lower lobe, unchanged from prior exam from 2014. Mild associated left lower lobe volume loss is present. No bronchial wall thickening or definite endobronchial filling defect is noted. -Remainder of the bilateral pulmonary bronchi and airways are normal in appearance. -Stable 3 mm groundglass nodule right upper lobe along minor fissure, consistent with intrapulmonary lymph node and unchanged (series 5, image 275). -Stable 3 mm nodule within the mid right major fissure (series 5, image 270), also consistent with intrapulmonary lymph node and unchanged. -Stable 4 mm subpleural nodule in the right lower lobe laterally, with pleural tag (series 5, image 351) consistent with intrapulmonary lymph node and unchanged. -Stable 2 and 3 mm nodules in subpleural peripheral posterior right lower lobe (series 5, images 371, 376). -There are no left-sided nodules. -There are no new or suspicious nodules. MEDIASTINUM: -Normal thyroid. -No adenopathy is present. -Esophagus appears grossly normal with a probable small type I hiatus hernia. -Normal heart size. -No pericardial effusion. -The aorta and main pulmonary artery appear normal. -Great vessels branch normally. CORONARY ARTERY CALCIFICATION: Mild LAD and minimal circumflex artery calcification. PLEURA: There is no pleural effusion. No pleural mass or thickening. AXILLA AND CHEST WALL: No lymphadenopathy. There is mild bilateral male gynecomastia. No additional chest wall abnormality. UPPER ABDOMEN: Small subcentimeter cyst in segment 8 of the liver. Upper abdominal contents otherwise normal. OSSEOUS STRUCTURES: No suspicious lytic or blastic bone lesion. Mild spinal degenerative changes. Mild bilateral shoulder joint degenerative changes. CT/CT chest wo IV con IMPRESSION: 1. No active pulmonary disease identified. 2. Stable region of protocol scarring in the posterior basal left lower lobe, with mild focal traction bronchiectasis. 3. No bronchial wall thickening or evidence of bronchitis. No endobronchial filling defects. 4. Unchanged right-sided pulmonary nodules, largest 4 mm, all which appear related to probable intrapulmonary lymph nodes. No new nodules. 5. Additional ancillary findings as detailed in the body of the report. Fleischner guidelines were followed.
== END 2024-01-07 13:09 | disposition home or self-care (01) ==
LOC: HO.CT 13:08
PROVIDERS: PCP Nurse Practitioner Family; Visit Provider Nurse Practitioner Family
DX: R05.3 Chronic cough (principal)
CPT/HCPCS: 71250

== ENCOUNTER → 2024-01-07 13:09 | Outpatient (BNV) | payer OTHER, SELFPAY | PROVIDERS: PCP Nurse Practitioner Family; Visit Provider Radiology Diagnostic Radiology | DX: R05.3 Chronic cough (principal) | CPT/HCPCS: 71250 ==

== ENCOUNTER 2024-04-02 10:55 | Outpatient (AMB) | payer OTHER, SELFPAY ==
--- NOTE | 2024-04-02 11:00 | A.OFFVIS_ITS ---
Vital Signs 04/02/24 11:01 Height 5 ft 10 in Weight 248 lb 0.321 oz BMI 35.6 BP 147/94 H Blood Pressure Location Rt brachial Position Sitting Pulse 70 Pulse Source Doppler Pulse Oximetry (%) 95 Oxygen Delivery Method Room Air Intake Visit Reasons: Abn CT,Bronchiectasis Allergies codeine Allergy (Unknown, Verified 04/02/24 11:03) due to Hx of addiction, stays away from opiods Codeine Sulfate Allergy (Unknown, Uncoded 09/29/23 09:11) hx of etoh abuse, pt does not want to be prescribed opiods OPIODS Allergy (Unknown, Uncoded 09/29/23 09:11) hx of etoh abuse, pt does not want to be prescribed opiods HPI HPI Abn CT,Bronchiectasis: Details: 63-year-old gentleman, occasionally smokes cigars, referred for evaluation of recurrent cough that happens usually in the winter months and alternates between being productive and nonproductive that tends to resolve in the spring. Patient does have family history of asthma in his mother. He denies exposure to industrial dusts. He denies personal history of lung disease. Patient states that cough does respond to systemic glucocorticoids. He does not have very some pulmonary function testing. He CT chest shows mild basilar bronchiectasis. His total IgA/IgG/IgM levels are normal. Patient does have small hiatal hernia on CT chest, however her only describes intermittent GERD symptoms. [facility], [facility] Medical History AA (alcohol abuse) Coronary artery calcification seen on CT scan Hemorrhoid Melanoma Obesity Surgical History Hx of wisdom tooth extraction Family History Mother Alzheimer disease COPD (chronic obstructive pulmonary disease) Father No problems noted. Son No problems noted. Daughter No problems noted. Sister Myocardial infarction Other Mental health disorder Substance use disorder Social History Housing: House Alcohol intake: former Patient Tobacco Use Status: Current someday Tobacco user Tobacco use type: Cigar e-Cigarette/Vaping Use: Never Used Second Hand Smoke Exposure: No Current occupational status: employed Cognitive needs: No Hearing needs: No Vision needs: No Review of Systems Resp Reports cough and Reports excessive phlegm production GI Denies heartburn Physical Exam Vital Signs: Last Vital Signs Pulse 70 04/02/24 11:01 BP 147/94 H 04/02/24 11:01 Pulse Ox 95 04/02/24 11:01 Oxygen Delivery Method Room Air 04/02/24 11:01 BMI result Body Mass Index 35.6 Const General: no acute distress and alert HEENT Head: Yes atraumatic Eyes General: appearance normal, both eyes and all related structures Sclerae: sclerae normal EOM: EOMs intact bilaterally Neck Neck: Yes supple Lymphatic: no lymphadenopathy noted Resp Effort & Inspection: normal respiratory effort and no use of accessory muscles Auscultation: clear to auscultation bilaterally Cardio Rate: regular rate Rhythm: regular rhythm Heart sounds: no gallops, no murmurs and no rubs Skin General skin exam: other ( warm) Extrem General: No clubbing, No cyanosis and No edema Assessment & Plan Assessment & Plan (1) Bronchiectasis: Code(s): J47.9 - Bronchiectasis, uncomplicated Category: Medical (2) Chronic cough: Code(s): R05.3 - Chronic cough Category: Medical Plan Recurrent cough in the winter months, may have allergic, cough variant asthma, immunologic etiologies. Will check immunoglobulin G subclasses, pulmonary function tests, and RAST for further evaluation. Will consider a empiric trial of inhaled corticosteroids during the winter months. Orders: Orders Resp Allergy Profile Region I Today R05.3 - Chronic cough PFT pulmonary function test Today R05.3 - Chronic cough Immunoglobulin G Subclasses Today R05.3 - Chronic cough Coding Level of Care Code New Pt Level 4 (53080) Diagnoses Bronchiectasis J47.9 Chronic cough R05.3
[2024-04-02 11:01] VITALS: BP 147/94; PULSE 70; O2SAT 95; BMI 35.6
== END 2024-04-02 11:22 | disposition home or self-care (01) ==
PROVIDERS: PCP Nurse Practitioner Family; Visit Provider Internal Medicine Pulmonary Disease
DX: J47.9 Bronchiectasis, uncomplicated (principal); R05.3 Chronic cough
CPT/HCPCS: 99204

== ENCOUNTER 2024-04-02 10:55 | Outpatient (REF) | payer OTHER, SELFPAY ==
[2024-04-05 14:29] LABS: Immunoglobulin G Subclass 1 394 mg/dL (382-929); Immunoglobulin G Subclass 2 434 mg/dL (241-700); Immunoglobulin G Subclass 3 21 mg/dL (22-178); Immunoglobulin G Subclass 4 20.4 mg/dL (4-86); Immunoglobulin G Total 894 mg/dL (600-1540)
[2024-04-05 22:23] LABS: Class Alternaria alternata 1; Class Aspergillus fumigatus 0; Class Bermuda Grass 0; Class Birch 0; Class Cat Dander 0; Class Cladosporium herbarum 0; Class Cockroach 0; Class Common Ragweed 0; Class Cottonwood 0; Class Derm. pterony 0; Class Dermatophagoides farinae 0; Class Dog Dander 0; Class Elm 0; Class Maple Box Elder 0; Class Mountain Cedar 0; Class Mouse Urine Protein 0; Class Mugwort 0; Class Oak 0; Class Penicillium crysogenum 0; Class Rough Pigweed 0; Class Sheep Sorrel 0; Class Sycamore 0; Class Timothy Grass 0; Class Walnut Tree 0; Class White Ash 0; Class White Mulberry 0; D001 IgE D pteronyssinus <0.10 kU/L; D002 - IgE D farinae <0.10 kU/L; E001 - IgE Cat Dander <0.10 kU/L; E005 - IgE Dog Dander <0.10 kU/L; E072-IgE Mouse Urine <0.10 kU/L; G002 IgE Bermuda Grass <0.10 kU/L; G006 - IgE Timothy Grass <0.10 kU/L; I006-IgE Cockroach, German <0.10 kU/L; Immunoglobulin E 25 kU/L (<OR=114); M001 IgE Penicillium chrysogen <0.10 kU/L; M002 - IgE Cladosporium herbar <0.10 kU/L; M003 - IgE Aspergillus fumigat <0.10 kU/L; M006 - IgE Alternaria alternat 0.48 kU/L; T001 IgE Maple/Box Elder <0.10 kU/L; T003 IgE Common Silver Birch <0.10 kU/L; T006 - IgE Cedar, Mountain <0.10 kU/L; T007 - IgE Oak, White <0.10 kU/L; T008 IgE Elm, American <0.10 kU/L; T010 - IgE Walnut <0.10 kU/L; T011 - IgE Maple Leaf Sycamore <0.10 kU/L; T014 - IgE Cottonwood <0.10 kU/L; T015 - IgE Ash, White <0.10 kU/L; T070 - IgE White Mulberry <0.10 kU/L; W001 - IgE Ragweed, Short <0.10 kU/L; W006 - IgE Mugwort <0.10 kU/L; W014 IgE Pigweed, Common <0.10 kU/L; W018 IgE Sheep Sorrel <0.10 kU/L
== END 2024-04-02 10:56 | disposition home or self-care (01) ==
LOC: HO.LAB 10:55
PROVIDERS: PCP Nurse Practitioner Family; Visit Provider Internal Medicine Pulmonary Disease
DX: R05.3 Chronic cough (principal)
CPT/HCPCS: 36415; 82784; 82785; 86003

== ENCOUNTER 2024-04-05 10:27 | Outpatient (AMB) | payer OTHER, SELFPAY ==
--- NOTE | 2024-04-05 10:34 | A.OFFVIS_ITS ---
Vital Signs 04/05/24 10:35 Height 5 ft 10 in Weight 244 lb 11.41 oz BMI 35.1 BP 140/78 H Blood Pressure Location Lt brachial Position Sitting Pulse 72 Pulse Source Pulse Oximeter Intake Visit Reasons: 6 month follow up Allergies codeine Allergy (Unknown, Verified 04/02/24 11:03) due to Hx of addiction, stays away from opiods Codeine Sulfate Allergy (Unknown, Uncoded 09/29/23 09:11) hx of etoh abuse, pt does not want to be prescribed opiods OPIODS Allergy (Unknown, Uncoded 09/29/23 09:11) hx of etoh abuse, pt does not want to be prescribed opiods Medication List - Last Reconciled 04/05/24 by Medardo Epperson MD atorvastatin 40 mg PO DAILY 90 days hydrochlorothiazide 25 mg PO DAILY irbesartan 300 mg PO DAILY HPI Comments Details: Sanket returns for follow-up regarding coronary artery disease. To recall, strong family history of cardiac issues in family members including father, sister. Patient himself with multiple cardiovascular risk factors including obesity, hypertension, dyslipidemia, NIESHA. Based on calcium scoring, he does have CAD. No clear-cut angina. Overall, he feels just about the same as before. He states he does not have much time for lifestyle changes and hence weight is just about the same as before. He feels he has lost maybe 7-8 lb overall in the last few months. However, still quite overweight. [facility] Medical History AA (alcohol abuse) Coronary artery calcification seen on CT scan Hemorrhoid Melanoma Obesity Surgical History Hx of wisdom tooth extraction Family History Mother Alzheimer disease COPD (chronic obstructive pulmonary disease) Father No problems noted. Son No problems noted. Daughter No problems noted. Sister Myocardial infarction Other Mental health disorder Substance use disorder Social History Housing: House Alcohol intake: former Patient Tobacco Use Status: Current someday Tobacco user Tobacco use type: Cigar e-Cigarette/Vaping Use: Never Used Second Hand Smoke Exposure: No Current occupational status: employed Cognitive needs: No Hearing needs: No Vision needs: No Review of Systems Const Denies weakness ENT Denies dizziness Card Denies chest pain, Denies chest pain with activity, Denies syncope, Denies rapid heart rate, Denies pedal edema, Denies edema, Denies leg edema, Denies lightheadedness, Denies palpitations, Denies dyspnea, Denies dyspnea on exertion and Denies orthopnea Resp Denies cough, Denies dyspnea and Denies dyspnea on exertion GI Denies hematochezia and Denies change in stool character Musc Denies abnormal gait, Denies muscle cramps, Denies muscle weakness, Denies numbness, Denies radiating pain into limb and Denies tingling Neuro Denies abnormal gait, Denies dizziness, Denies syncope, Denies numbness, Denies tingling and Denies weakness Endo Denies palpitations Physical Exam Vital Signs: Last Vital Signs Pulse 72 04/05/24 10:35 BP 140/78 H 04/05/24 10:35 BMI result Body Mass Index 35.1 Const General: comfortable and no acute distress Orientation/consciousness: patient oriented x3 HEENT Other: Unremarkable Head: Yes normal to inspection Neck Neck: Yes normal visual inspection Chest Chest palpation & inspection: normal inspection of the chest Resp Auscultation: clear to auscultation bilaterally Cardio Palpation: normal PMI Heart sounds: S1 normal heart sound present, S2 normal heart sound present, no gallops, no murmurs and no rubs GI Palpation (GI): Soft to palpation Back/Spine/Pelvis Other: unremarkable Skin General skin exam: no rashes or lesions noted Neuro General: patient oriented x3 Extrem General: Yes normal to inspection Psych Mental Status: mental status grossly normal Assessment & Plan Assessment & Plan (1) Coronary artery calcification seen on CT scan: Code(s): I25.10 - Atherosclerotic heart disease of [place] coronary artery without angina pectoris Category: Medical (2) Hypertension: Code(s): I10 - Essential (primary) hypertension Category: Medical Qualifiers: Hypertension type: primary hypertension Qualified Code(s): I10 - Essential (primary) hypertension (3) Hypercholesteremia: Code(s): E78.00 - Pure hypercholesterolemia, unspecified Category: Medical Plan Cardiac studies reviewed. Echocardiogram from 2020 with LVEF of 60-65% and otherwise unremarkable. In the exercise stress test from 2019, he was able to exercise on Rom protocol for 7 minutes and 2 seconds and reached 8.6 METS. No angina and no EKG evidence of ischemia. Prior calcium scoring CT scan with a score of 58. It was repeated 2022 and that showed score of 134 distributed between the LAD and circumflex. Overall, mainly risk factor modification. Clinically, he has got absolutely no symptoms. We discussed at length about losing weight and suggest that he can aim for about 10% weight loss, which will be approximately 25 lb. He will try that over the following year. He is not interested in using CPAP mask whatsoever. Hopefully the weight loss can resolve at least some of the sleep apnea. Blood pressure is borderline high which is again related to the weight. LDL is reasonable at 73 mg/dL. We will follow-up in 1 year. In the interim, he will call with concerns. Total time spent including review of data, counseling, documentation, coordination of care-31 minutes. Coding Level of Care Code Est Pt Level 4 (27379) Diagnoses Coronary artery calcification seen on CT scan I25.10 Primary hypertension I10 Hypertension type: primary hypertension Hypercholesteremia E78.00
[2024-04-05 10:35] VITALS: BP 140/78; PULSE 72; BMI 35.1
== END 2024-04-05 11:01 | disposition home or self-care (01) ==
PROVIDERS: PCP Nurse Practitioner Family; Visit Provider Internal Medicine
DX: I25.10 Atherosclerotic heart disease of native coronary artery without angina pectoris (principal); I10 Essential (primary) hypertension; E78.00 Pure hypercholesterolemia, unspecified
CPT/HCPCS: 99214

== ENCOUNTER → 2024-04-05 10:27 | Outpatient (BNVA) | payer OTHER, SELFPAY | PROVIDERS: PCP Nurse Practitioner Family; Visit Provider Internal Medicine ==

== ENCOUNTER 2024-05-12 15:13 | Outpatient (AMB) | payer OTHER, SELFPAY ==
[2024-05-12 15:15] VITALS: BP 122/78; PULSE 77; O2SAT 96; BMI 35.6
--- NOTE | 2024-05-12 15:15 | A.OFFVIS_ITS ---
Vital Signs 05/12/24 15:15 Height 5 ft 10 in Weight 248 lb 0.321 oz BMI 35.6 BP 122/78 Blood Pressure Location Rt brachial Position Sitting Pulse 77 Pulse Source Doppler Pulse Oximetry (%) 96 Oxygen Delivery Method Room Air Intake Visit Reasons: Bronchiectasis/PFT Follow Up Allergies codeine Allergy (Unknown, Verified 04/02/24 11:03) due to Hx of addiction, stays away from opiods Codeine Sulfate Allergy (Unknown, Uncoded 09/29/23 09:11) hx of etoh abuse, pt does not want to be prescribed opiods OPIODS Allergy (Unknown, Uncoded 09/29/23 09:11) hx of etoh abuse, pt does not want to be prescribed opiods HPI HPI Bronchiectasis/PFT Follow Up: Details: 63-year-old gentleman, occasionally smokes cigars, referred for evaluation of recurrent cough that happens usually in the winter months and alternates between being productive and nonproductive that tends to resolve in the spring. Patient does have family history of asthma in his mother. He denies exposure to industrial dusts. He denies personal history of lung disease. Patient states that cough does respond to systemic glucocorticoids. He does not have very some pulmonary function testing. He CT chest shows mild basilar bronchiectasis. His total IgA/IgG/IgM levels are normal. Patient does have small hiatal hernia on CT chest, however her only describes intermittent GERD symptoms. After the last office visit patient has completed his immunologic workup that is essentially normal. His PFT is still pending. Patient states that he starting to experience his winter cough. [facility] Medical History AA (alcohol abuse) Coronary artery calcification seen on CT scan Hemorrhoid Melanoma Obesity Surgical History Hx of wisdom tooth extraction Family History Mother Alzheimer disease COPD (chronic obstructive pulmonary disease) Father No problems noted. Son No problems noted. Daughter No problems noted. Sister Myocardial infarction Other Mental health disorder Substance use disorder Social History Housing: House Alcohol intake: former Patient Tobacco Use Status: Current someday Tobacco user Tobacco use type: Cigar e-Cigarette/Vaping Use: Never Used Second Hand Smoke Exposure: No Current occupational status: employed Cognitive needs: No Hearing needs: No Vision needs: No Review of Systems Resp Reports cough Physical Exam Vital Signs: Last Vital Signs Pulse 77 05/12/24 15:15 BP 122/78 05/12/24 15:15 Pulse Ox 96 05/12/24 15:15 Oxygen Delivery Method Room Air 05/12/24 15:15 BMI result Body Mass Index 35.6 Const General: no acute distress and alert Orientation/consciousness: Other orientation findings ( oriented) HEENT Head: Yes atraumatic Eyes General: appearance normal, both eyes and all related structures Sclerae: sclerae normal EOM: EOMs intact bilaterally Neck Neck: Yes supple Lymphatic: no lymphadenopathy noted Resp Effort & Inspection: normal respiratory effort and no use of accessory muscles Auscultation: clear to auscultation bilaterally Cardio Rate: regular rate Rhythm: regular rhythm Heart sounds: no gallops, no murmurs and no rubs Skin General skin exam: other ( warm) Extrem General: No clubbing, No cyanosis and No edema Assessment & Plan Assessment & Plan (1) Bronchiectasis: Code(s): J47.9 - Bronchiectasis, uncomplicated Category: Medical (2) Chronic cough: Code(s): R05.3 - Chronic cough Category: Medical (3) Cough variant asthma: Code(s): J45.991 - Cough variant asthma Category: Medical Plan Results for immunologic testing reviewed and essentially normal. Patient appears to have called with the end use cough, likely secondary to cough variant asthma. Will start on empiric Breo. Medications: New fluticasone furoate-vilanterol 200-25 mcg/dose (Breo Ellipta) 1 inh inhalation DAILY 1 ea 6RF Coding Level of Care Code Est Pt Level 4 (97626) Diagnoses Bronchiectasis J47.9 Chronic cough R05.3 Cough variant asthma J45.991
== END 2024-05-12 15:51 | disposition home or self-care (01) ==
PROVIDERS: PCP Nurse Practitioner Family; Visit Provider Internal Medicine Pulmonary Disease
DX: J47.9 Bronchiectasis, uncomplicated (principal); R05.3 Chronic cough; J45.991 Cough variant asthma
CPT/HCPCS: 99214

== ENCOUNTER → 2024-05-12 15:13 | Outpatient (BNVA) | payer OTHER, SELFPAY | PROVIDERS: PCP Nurse Practitioner Family; Visit Provider Internal Medicine Pulmonary Disease ==

== ENCOUNTER 2024-05-19 14:59 | Outpatient (AMB) | payer OTHER, SELFPAY ==
--- NOTE | 2024-05-19 15:02 | MHC.PC.OV ---
Vital Signs 05/19/24 15:03 Height 5 ft 10 in Weight 253 lb BMI 36.3 BP 122/74 Blood Pressure Location Rt brachial Position Sitting Pulse 72 Pulse Source Pulse Oximeter Pulse Oximetry (%) 98 Oxygen Delivery Method Room Air Intake Visit Reasons: Physical Exam Intake Note: pt is here for PE Transportation Maintenance Specialist Required: No Accompanied by: Self / Same As Patient Allergies codeine Allergy (Unknown, Verified 05/19/24 15:12) due to Hx of addiction, stays away from opiods Codeine Sulfate Allergy (Unknown, Uncoded 05/19/24 15:12) hx of etoh abuse, pt does not want to be prescribed opiods OPIODS Allergy (Unknown, Uncoded 05/19/24 15:12) hx of etoh abuse, pt does not want to be prescribed opiods Medication List - Last Reconciled 05/19/24 by ELOISE Abdullahi atorvastatin 40 mg PO DAILY 90 days fluticasone furoate-vilanterol 200-25 mcg/dose (Breo Ellipta) 1 inh inhalation DAILY hydrochlorothiazide 25 mg PO DAILY irbesartan 300 mg PO DAILY Tobacco use date assessed: 11/18/23 Dental Screening Dental Screen Date: 11/18/23 HPI Physical Exam HPI Details Pt is here for a PE. Will order labs. Due for colon screen. PSA is up to date. Pt does report weak stream and incomplete bladder emptying. Will repeat PSA. refused NUNU today. Pt knows to contact me with any worsening symptoms Pt follows up with pulmonology and cardiology. [facility] Medical History Coronary artery calcification seen on CT scan Hemorrhoid Melanoma AA (alcohol abuse) Obesity Surgical History Hx of wisdom tooth extraction Family History Mother Alzheimer disease COPD (chronic obstructive pulmonary disease) Father No problems noted. Son No problems noted. Daughter No problems noted. Sister Myocardial infarction Other Mental health disorder Substance use disorder Social History Housing: House Alcohol intake: former Patient Tobacco Use Status: Current someday Tobacco user Tobacco use type: Cigar e-Cigarette/Vaping Use: Never Used Second Hand Smoke Exposure: No Current occupational status: employed Cognitive needs: No Hearing needs: No Vision needs: No Questionnaire PHQ-9 Over the last 2 weeks, how often have you been bothered by any of the following problems? 1. Little interest or pleasure in doing things: not at all 2. Feeling down, depressed, or hopeless: not at all 3. Trouble falling or staying asleep, or sleeping too much: not at all 4. Feeling tired or having little energy: several days 5. Poor appetite or overeating: nearly every day 6. Feeling bad about yourself - or that you are a failure or have let yourself or your family down: not at all 7. Trouble concentrating on things, such as reading the newspaper or watching television: not at all 8. Moving or speaking so slowly that other people could have noticed. Or the opposite - being so fidgety or restless that you have been moving around a lot more than usual: not at all 9. Thoughts that you would be better off or of hurting yourself in some way: not at all Total score: 4 Depression Screening Interpretation: Negative Depression Screening Done: Yes 10891 - PHQ-9 Billing: Yes Source: Developed by Drs. Frankie Guillen, Atiya Stafford, Torito Wagner and colleagues, with an educational kyler from [employer]. Thrive Questionnaire Date Thrive assessed: 05/19/24 I am a: Patient What is your living situation today?: I have a steady place to live Within the past 12 months, did the food you bought not last and you didn't have the money to get more?: Never true Within the past 12 months, did you worry whether your food would run out before you got money to buy more?: Never true Do you have trouble paying for medicines?: No Do you have trouble getting transportation to medical appointments?: No Do you have trouble paying your heating and electricity bill?: No Do you have trouble taking care of your child, family member or friend?: No Do you have trouble with day-to-day activities such as bathing, preparing meals, shopping, managing finances, etc.?: No Are you currently unemployed and looking for a job?: No Are you interested in more education?: No Please select the resources that you would like help with: None Currently or been in a relationship where the following occur: No concerns reported THRIVE Score: 0 AUDIT C Alcohol Use Questionnaire (AUDIT-C) 1. How often do you have a drink containing alcohol?: Never 3. How often do you have six or more drinks on one occasion?: Never Total Score: 0 Score Reviewed/Action Taken: Yes REBEKA-7 AMB Questionnaire REBEKA-7 Date REBEKA - 7 assessed: 05/19/24 Feeling nervous, anxious, or on edge: 0 = Not at all Not being able to stop or control worryin = Not at all Worrying too much about different things: 0 = Not at all Trouble relaxin = Not at all Being so restless that it is hard to sit still: 0 = Not at all Becoming easily annoyed or irritable: 1 = Several days Feeling afraid as if something awful might happen: 0 = Not at all Total REBEKA-7 score (0-4 normal; 5-9 mild; 10-14 moderate; 15-21 severe): 1 Source: Developed by Drs. Frankie Guillen, Atiya Stafford, Torito Wagner and colleagues, with an educational kyler from [employer]. REBEKA-7 Assessment Billing REBEKA-7 Assessment Tool: REBEKA-7 Assessment 31151 Review of Systems Const Denies chills and Denies fever(s) Eyes Denies blurry vision ENT Denies vertigo, Denies dizziness and Denies sore throat Card Denies chest pain at rest, Denies chest pain with activity, Denies diaphoresis, Denies dyspnea and Denies dyspnea on exertion Resp Denies cough, Denies dyspnea, Denies dyspnea on exertion and Denies wheezing GI Denies abdominal pain, Denies melena, Denies hematochezia, Denies constipation, Denies diarrhea and Denies loose stools Denies hematuria Musc Denies numbness and Denies tingling Skin/Breast Denies lesions Neuro Denies vertigo, Denies dizziness, Denies numbness and Denies tingling Psych Denies anxiety, Denies depression, Denies homicidal ideation, Denies suicidal ideation and Denies other (substance abuse) Aller/Immun Denies wheezing Physical exam (Primary Care) Vital Signs: Last Vital Signs Pulse 72 05/19/24 15:03 BP 122/74 05/19/24 15:03 Pulse Ox 98 05/19/24 15:03 Oxygen Delivery Method Room Air 05/19/24 15:03 BMI result Body Mass Index 36.3 Tobacco/Smoking Status: Tobacco use Status Tobacco use date assessed 11/18/23 05/19/24 15:03 Patient Tobacco Use Status Current someday Tobacco 05/19/24 15:03 Tobacco use type Cigar 05/19/24 15:03 e-Cigarette/Vaping Use Never Used 05/19/24 15:03 PHQ-9: PHQ-9 Score PHQ-9: Total score 4 05/19/24 15:04 Depression Screening Interpretation: Negative Thrive Assessment: Date of Thrive Assessment Date Thrive assessed 05/19/24 05/19/24 15:04 Currently or been in a relationship where the following occur: No concerns reported Const General: cooperative Nutritional Appearance: obese Orientation/consciousness: patient oriented x3 HENMT Head: Yes normal to inspection, Yes normocephalic and Yes atraumatic Ears: TM's normal bilaterally Eyes General: appearance normal, both eyes and all related structures Alignment and Position: alignment normal and position normal Neck Neck: Yes normal visual inspection, Yes no lymphadenopathy and Yes supple Resp Effort & Inspection: normal respiratory effort Auscultation: clear to auscultation bilaterally Cardio Rate: regular rate Rhythm: regular rhythm Heart sounds: S1 normal heart sound present, S2 normal heart sound present and no murmurs GI Palpation (GI): Soft to palpation and nontender Auscultation: normal bowel sounds Other: refused NUNU, left small inguinal hernia noted. Large left testicle. Penis: normal penis Scrotum: testes descended bilaterally Testes: no testicular mass Skin Rashes: no rashes Neuro General: patient oriented x3, moves all extremities, no focal motor deficits and deep tendon reflexes 2+ bilaterally Romberg Test: Negative Psych Appearance: grossly normal Mental Status: mental status grossly normal Speech and movement: Normal speech and movement present Affect: normal affect Attitude: cooperative Thought process: Normal thought process present Thought content: Normal thought content present Insight: Good insight present (Psych) Judgement: Good judgement present (Psych) Coding Level of Care Code Est Pt Prev Care 40-64y(02260) Diagnoses Physical exam Z00.00 Screening PSA (prostate specific antigen) Z12.5 Enlarged prostate N40.0 Additional Codes REBEKA-7 Assessment Billing - REBEKA-7 Assessment Tool: REBEKA-7 Assessment 31839 ([id number]) Assessment & Plan Assessment & Plan (1) Physical exam: Code(s): Z00.00 - Encounter for general adult medical examination without abnormal findings Category: Medical Plan: Labs ordered (2) Screening PSA (prostate specific antigen): Code(s): Z12.5 - Encounter for screening for malignant neoplasm of prostate Category: Medical Plan: PSA ordered (3) Enlarged prostate: Code(s): N40.0 - Benign prostatic hyperplasia without lower urinary tract symptoms Category: Medical Plan: PSA ordered Plan The patient agreed to the use of a medical administrative for this encounter. Scribed for ELOISE Smith by Luz Maria Fish medical administrative, on 05/19/2024 at 15:10 EST. Orders: Orders Complete Blood Count Auto Diff Today Z00.00 - Encounter for general adult medical examination without abnormal findings TSH reflex Free T4 Today Z00.00 - Encounter for general adult medical examination without abnormal findings UA CC w/rflx Micro + Cult Today Z00.00 - Encounter for general adult medical examination without abnormal findings Lipid Panel Today Z00.00 - Encounter for general adult medical examination without abnormal findings Prostate Specific Antigen Scr Today N40.0 - Benign prostatic hyperplasia without lower urinary tract symptoms, Z12.5 - Encounter for screening for malignant neoplasm of prostate Comprehensive Lenore. Panel Fast Today Z00.00 - Encounter for general adult medical examination without abnormal findings Medications: Refilled fluticasone furoate-vilanterol 200-25 mcg/dose (Breo Ellipta) 1 inh inhalation DAILY 1 ea 6RF
[2024-05-19 15:03] VITALS: BP 122/74; PULSE 72; O2SAT 98; BMI 36.3
== END 2024-05-19 15:43 | disposition home or self-care (01) ==
PROVIDERS: PCP Nurse Practitioner Family; Visit Provider Nurse Practitioner Family
DX: Z00.00 Encounter for general adult medical examination without abnormal findings (principal); Z12.5 Encounter for screening for malignant neoplasm of prostate; N40.0 Benign prostatic hyperplasia without lower urinary tract symptoms

== ENCOUNTER → 2024-05-19 14:59 | Outpatient (BNVA) | payer OTHER, SELFPAY | PROVIDERS: PCP Nurse Practitioner Family; Visit Provider Nurse Practitioner Family | DX: Z00.00 Encounter for general adult medical examination without abnormal findings (principal); N40.1 Benign prostatic hyperplasia with lower urinary tract symptoms; R39.14 Feeling of incomplete bladder emptying; R39.12 Poor urinary stream | CPT/HCPCS: 96127 ==

== ENCOUNTER 2024-05-20 06:28 | Outpatient (REF) | payer OTHER, SELFPAY ==
[2024-05-20 10:20] LABS: MANUAL DIFF FLAG NO
[2024-05-20 10:31] LABS: Basophils Absolute Auto 0.1 X10*3/uL (0.0-0.2); Basophils Percent Auto 0.8 % (0-2); Eosinophils Absolute Auto 0.3 X10*3/uL (0.0-0.4); Eosinophils Percent Auto 3.9 % (0-4); Hematocrit 42.8 % (42.0-52.0); Imm Gran Abs Auto 0.08 X10*3/uL (0.00-0.03); Imm Gran Pct Auto 1.2 % (0.0-0.4); Lymphocytes Absolute Auto 1.3 X10*3/uL (1.2-4.9); Lymphocytes Percent Auto 20.5 % (20-40); Mean Corpuscular Hemoglobin 31.3 pg (27.0-33.0); Mean Corpuscular Volume 89.2 fL (80.0-98.0); Mean Platelet Volume 9.1 fL (9.4-12.4); Monocytes Absolute Auto 0.8 X10*3/uL (0.1-1.2); Neutrophils Percent Auto 61.6 % (45-73); Platelet Count 236 X10*3/uL (160-400); Red Cell Distribution Width 12.8 % (11.0-16.0); White Blood Count 6.4 X10*3/uL (4.8-10.8)
[2024-05-20 10:58] LABS: Alanine Aminotransferase 39 U/L (0-40); Alkaline Phosphatase 79 U/L (39-117); Anion Gap 10 (12-20); Aspartate Amino Transferase 31 U/L (5-37); Bilirubin Total 0.6 mg/dL (0.0-1.0); Blood Urea Nitrogen 16 mg/dL (9-16); Carbon Dioxide 27 mmol/L (22-29); Chloride 106 mmol/L (96-108); Cholesterol 133 mg/dL (<200); Estimated Glomerular Filt Rate > 60; Glucose Fasting 125 mg/dL (60-99); HDL Cholesterol 41 mg/dL (>40); LDL Cholesterol Calculated 78 mg/dL (<100); Potassium 3.8 mmol/L (3.3-5.1); Sodium 139 mmol/L (135-145); Total Protein 6.8 g/dL (6.5-8.0); Triglycerides 71 mg/dL (<150)
[2024-05-20 10:59] LABS: Prostate Specific Antigen Scr 2.47 ng/mL (<0.05-4.0)
[2024-05-20 11:00] LABS: TSH reflex Free T4 2.75 uIU/mL (0.32-4.0)
[2024-05-20 16:47] LABS: Appearance Urine Clear; Color Urine Yellow; Glucose Urine UA Negative (Negative); Leukocyte Esterase Urine Negative (Negative); Nitrite Urine Negative (Negative); Specific Gravity - Urine 1.015 (1.005-1.025); Urine Blood Negative (Negative); Urine Ketones Negative (Negative); Urine Protein Negative (Neg-Trace)
== END 2024-05-20 06:29 | disposition home or self-care (01) ==
LOC: HO.HMGCLDS 06:28
PROVIDERS: PCP Nurse Practitioner Family; Visit Provider Nurse Practitioner Family
DX: Z00.00 Encounter for general adult medical examination without abnormal findings (principal); Z12.5 Encounter for screening for malignant neoplasm of prostate; N40.0 Benign prostatic hyperplasia without lower urinary tract symptoms
CPT/HCPCS: 36415; 80053; 80061; 81003; 84153; 84443; 85025

== ENCOUNTER 2024-08-10 08:03 | Outpatient (AMB) | payer OTHER, SELFPAY ==
--- NOTE | 2024-08-10 08:05 | MHC.OFFVIS ---
Intake Visit Reasons: BPH Intake Note: New Patient is present for BPH/Weak Urinary Stream Urology Medications Tried: None Antibiotic Allergy: None Blood Thinner: None PVR: 29ml Digital Content Producer Required: No Accompanied by: Self / Same As Patient Allergies codeine Allergy (Unknown, Verified 08/10/24 08:48) due to Hx of addiction, stays away from opiods Codeine Sulfate Allergy (Unknown, Uncoded 08/10/24 08:48) hx of etoh abuse, pt does not want to be prescribed opiods OPIODS Allergy (Unknown, Uncoded 08/10/24 08:48) hx of etoh abuse, pt does not want to be prescribed opiods Medication List - Last Reconciled 08/10/24 by SAVANNAH Fontenot-CAMMY atorvastatin 40 mg PO DAILY 90 days fluticasone furoate-vilanterol 200-25 mcg/dose (Breo Ellipta) 1 inh inhalation DAILY hydrochlorothiazide 25 mg PO DAILY irbesartan 300 mg PO DAILY HPI Comments Details: Sankte is a very pleasant 63-year-old male patient of Dr. Pepper. Has a past medical history of hemorrhoids, melanoma, alcohol abuse, and obesity. He presents to the office today as a new patient for urinary frequency, nocturia, urinary hesitancy, and urinary dribbling. In discussion with the patient today reports having had his annual PCP visit at which time he was discussing lower urinary tract symptoms and recommendations were made for urology referral for further assessment evaluation. In discussion with the patient today he does report lower urinary tract symptoms however feels he is managing them independently in does not wish to undergo further workup at this time. We discussed at length potential causes of lower urinary tract symptoms as well as further workup and risks and benefits of these interventions. He otherwise denies incontinence, hematuria, dysuria, foul smelling urine, flank pain, fever, and or chills. He is happy with his current voiding parameters. In office urinalysis results reviewed with the patient today. PVR 29 mL. We discussed obtaining retroperitoneal ultrasound for further assessment evaluation however patient does not feel this is necessary at this time. NUNU offered however deferred. In review of patient's chart it appears PSAs are as follows: 01/16 3.1, 11/18 2.2, 05/20 2.5 He otherwise offers no other issues or concerns at this time. PFSH Medical History Coronary artery calcification seen on CT scan Hemorrhoid Melanoma AA (alcohol abuse) Obesity Surgical History Hx of wisdom tooth extraction Family History Mother Alzheimer disease COPD (chronic obstructive pulmonary disease) Father No problems noted. Son No problems noted. Daughter No problems noted. Sister Myocardial infarction Other Mental health disorder Substance use disorder Social History Housing: House Alcohol intake: former Patient Tobacco Use Status: Current someday Tobacco user Tobacco use type: Cigar e-Cigarette/Vaping Use: Never Used Second Hand Smoke Exposure: No Current occupational status: employed Cognitive needs: No Hearing needs: No Vision needs: No Review of Systems Const All systems reviewed & are unremarkable except as noted in HPI and below Physical Exam Const General: cooperative, healthy appearing, comfortable, no acute distress, well developed, alert and awake Nutritional Appearance: overweight Orientation/consciousness: patient oriented x3 Limitations: no limitations HEENT Head: Yes normal to inspection, Yes normocephalic and Yes atraumatic Ears: hearing grossly normal bilaterally Eyes General: appearance normal, both eyes and all related structures Neck Neck: Yes normal visual inspection and Yes trachea midline Chest Chest palpation & inspection: normal inspection of the chest Resp Effort & Inspection: normal respiratory effort and able to speak in complete sentences Cardio Rate: regular rate GI Inspection: Yes normal to inspection General: Yes no CVA tenderness Back/Spine/Pelvis Back: no CVA tenderness Skin General skin exam: no rashes or lesions noted Neuro General: patient oriented x3 Extrem General: Yes normal to inspection Psych Appearance: grossly normal and well kempt Mental Status: mental status grossly normal Speech and movement: Normal speech and movement present and Clear speech present Affect: normal affect Attitude: cooperative Thought process: Normal thought process present Thought content: Normal thought content present Insight: Fair insight present (Psych) Judgement: Fair judgement present (Psych) Office Procedures Post Void Residual Post Residual Void Post Void Residual (PVR): 29 83103-Olan Void Residual by ultrasound Results AMB Urinalysis, Automated UA Leukoctes 0 Jerzy/uL Last Edit by Yany Martino, A on 08/10/24 08:26 UA Nitrite Negative Last Edit by Yany Martino, A on 08/10/24 08:26 UA Urobilinogen 0.2 mg/dL Last Edit by Yany Martino, RMA on 08/10/24 08:26 UA Protein 0 mg/dL Last Edit by Yany Martino, RMA on 08/10/24 08:26 UA pH 6.0 Last Edit by Yany Martino, RMA on 08/10/24 08:26 UA Blood 0 Naren/uL Last Edit by Yany Martino, RMA on 08/10/24 08:26 UA Specific [place] 1.015 Last Edit by Yany Martino, A on 08/10/24 08:26 UA Ketone Negative Last Edit by Yany Martino, A on 08/10/24 08:26 UA Bilirubin 0 mg/dL Last Edit by Yany Martino, A on 08/10/24 08:26 UA Glucose 0 mg/dL Last Edit by Yany Martino, A on 08/10/24 08:26 Results Reviewed Results Reviewed: Laboratory Last Values Urine pH (Auto) 6.0 08/10/24 08:19 Specific [place] (Auto) 1.015 08/10/24 08:19 Urine Protein (Auto) 0 mg/dL 08/10/24 08:19 Glucose (UA)(Auto) 0 mg/dL 08/10/24 08:19 Urine Ketones (Auto) Negative 08/10/24 08:19 Urine Blood (Auto) 0 Naren/uL 08/10/24 08:19 Urine Nitrite (Auto) Negative 08/10/24 08:19 Urine Bilirubin (Auto) 0 mg/dL 08/10/24 08:19 Urine Urobilinogen (Auto) 0.2 mg/dL 08/10/24 08:19 Leukocyte Esterase (Auto) 0 Jerzy/uL 08/10/24 08:19 Assessment & Plan Assessment & Plan (1) Weak urinary stream: Code(s): R39.12 - Poor urinary stream Category: Medical (2) Nocturia: Code(s): R35.1 - Nocturia Category: Medical (3) History of urinary hesitancy: Code(s): Z87.898 - Personal history of other specified conditions Category: Medical (4) Urinary dribbling: Code(s): N39.43 - Post-void dribbling Category: Medical Plan In office urinalysis results reviewed with the patient today; as noted above. PVR 29 mL. We discussed at length potential causes of lower urinary tract symptoms patient was experiencing as well as further workup in risks and benefits of these interventions. Patient reports be happy with current voiding parameters. He reports to be managing well independently. Will continue with surveillance monitoring at this time. Previous PSA results reviewed with the patient today; as noted above. We discussed bladder triggers/irritants. We discussed attempting to sit when voiding to assist with bladder emptying and relaxation of bladder. We discussed limiting fluids 2-3 hours prior to bed to decrease episodes of nocturia. NUNU offered however deferred. Follow-up in 1 year with PVR and PSA; or sooner with any issues, concerns, and or questions. Orders: Orders AMB Urinalysis Automated Today Z13.9 - Encounter for screening, unspecified AMB Post Void Residual by ultrasound Today R39.12 - Poor urinary stream Patient Instructions: The patient had an opportunity to ask questions regarding the treatment plan. All questions were answered. Physical exam, labs, and imaging were discussed and reviewed in detail. As well as risks, benefits, and discussion of treatment choices. No major barriers to understanding were identified. The patient expressed understanding and agreement with the above treatment plan. The patient was made aware they should contact our office by phone for worsening of their current condition, the appearance of new symptoms, or with any questions or concerns. Compliance is encouraged with any medications and follow up testing that is ordered. It is a privilege to be allowed the opportunity to participate in? your urological care.? Again, if you have any questions or concerns If you have any questions or concerns please do not hesitate to contact me. The office is [phone]. This note is constructed using voice recognition software. While every effort has been made to ensure accuracy teletypewriter installer errors may have been included. Yours sincerely, ELOISE Fontenot Coding Level of Care Code New Pt Level 3 (73352) Diagnoses Weak urinary stream R39.12 Nocturia R35.1 History of urinary hesitancy Z87.898 Urinary dribbling N39.43 CPT Codes Post Residual Void - PVR CPT Code: 15238-Nogp Void Residual by ultrasound ([id number])
== END 2024-08-10 08:50 | disposition home or self-care (01) ==
PROVIDERS: PCP Nurse Practitioner Family; Visit Provider Nurse Practitioner Family
DX: R39.12 Poor urinary stream (principal); R35.1 Nocturia; Z87.898 Personal history of other specified conditions; N39.43 Post-void dribbling; Z13.9 Encounter for screening, unspecified
CPT/HCPCS: 99203

== ENCOUNTER → 2024-08-10 08:03 | Outpatient (BNVA) | payer OTHER, SELFPAY | PROVIDERS: PCP Nurse Practitioner Family; Visit Provider Nurse Practitioner Family | DX: R39.12 Poor urinary stream (principal); R35.1 Nocturia; N39.43 Post-void dribbling; Z87.898 Personal history of other specified conditions | CPT/HCPCS: 51798; 81003 ==

== ENCOUNTER 2025-01-27 13:02 | Outpatient (AMB) | payer OTHER, SELFPAY ==
--- OUTSIDE RECORDS SUMMARY | 2025-01-27 13:05 | XMS_ITS | Clinical Summary ---
Author Organization [email or web address] Address [address] [place] [address] Care Team Providers Care Straightedge Man Name Role Phone Unavailable Primary Care Provider Unavailabl e Allergies No known active allergies Social History Tobacco Use Types Packs/Day Years Used Date Smoking Tobacco: Some Days Cigars Passive Smoke Exposure: Never Smokeless Tobacco: Never Tobacco Cessation:Ready to Q uit: Not Asked; Counseling Given: Not Answered Alcohol Use Standard Drinks/Week Comments Never 0 (1 standard drink = 0.6 oz pur e alcohol) Sex and Gender Information Value Date Recorded Sex Assigned at Male 05/27/2022 10:40 AM EDT Legal Sex Male 10:40 AM EDT Gender Identity Male 05/27/2022 10:40 AM EDT Sexual Orientation Straight 05/27/2022 10 :40 AM EDT Last Filed Vital Signs Vital Sign Reading Time Taken Comments Blood Pressure 132/86 12/27/2022 3:06 PM EDT Pulse 84 12/27/2022 3:06 PM EDT Temperature - - Respiratory Rate - - Oxygen Saturation - - Inhaled Oxygen Concentration - - Weight - - Height - - Body Mass Index - - Plan of Treatment Health Maintenance Due Date Last Done Comments CT Colonography 1960 Colonoscopy 1960 Colorectal Cancer Screening 1960 Dental Prophylaxis 1960 Depression Screening 1960 FIT DNA/Cologuard 1960 FIT 1960 FOBT 1960 HIV Screening 1960 Lipid Panel 1960 SDOH Screening 1960 Sigmoidoscopy 1960 Disability Screening 1960 Alcohol/Substance Use Screening 1972 Hepatitis C Screening 1978 DTaP/Tdap/Td Vaccines (1 - Tdap) 11/08/1979 Pneumococcal Vaccine: 50+ Years (1 of 2 - PCV) 11/08/1979 Zoster Vaccines (1 of 2) 2010 Dental Oral Exam 06/29/2023 12/27/2022 Tobacco Screening 12/28/2023 12/27/2022 Dental X-Ray: Bitewings 12/29/2023 12/27/2022 COVID-19 Vaccine ( season) 2024 11/23/2022, 03/16/2022, 05/25/2021, Additional history exists Influenza Vaccine (Season Ended) 2025 05/25/2021, 05/18/2018, 05/09/2017, Additional history exists Dental X-Ray: Full Mouth 12/28/2025 12/27/2022 RSV Patients and Patients Aged 60 years or older (1 - 1-dose 75+ series) 11/08/2035 HIB Vaccines Aged Out No longer eligi ble based on patient's age to complete this topic HPV Vaccines Aged Out No longer eligi ble based on patient's age to complete this topic Hepatitis A Vaccines Aged Out No long er eligible based on patient's age to complete this topic Hepatitis B Vaccines Aged Out No long er eligible based on patient's age to complete this topic IPV Vaccines Aged Out No longer eligi ble based on patient's age to complete this topic Meningococcal B Vaccine Aged Out No l onger eligible based on patient's age to complete this topic Meningococcal Vaccine Aged Out No hernandez jose eligible based on patient's age to complete this topic RSV under 20 months Aged Out No longe r eligible based on patient's age to complete this topic Rotavirus Vaccines Aged Out No longer eligible based on patient's age to complete this topic Procedures Procedure Name Priority Date/Time Associated Diagnosis Comments INTRAORAL - COMPLETE SERIES OF RADIOGRAPHIC IMAGES Routine 12/27/2022 3:00 PM EDT COMPREHENSIVE ORAL EVALUATION - NEW OR ESTABLISHED PATIENT Routine 12/27/2022 2:30 PM EDT from Last 3 Months or Most Recently Relevant to Health Maintenance
--- OUTSIDE RECORDS SUMMARY | 2025-01-27 13:05 | XMS_ITS | Patient Health Record ---
Author Organization [facility] Address [address] [place] [address] Care Team Providers Care Marine Insulator Name Role Phone JESSICATOMMYTIFFANY Primary Care Provider Frankie Georges [phone] Allergies Allergen (clinical drug ingredient) Drug/Non Drug Allergy documented on EMR Reaction Allergy Type Onset Date Status codeine Codeine Sulfate Unknown Drug Allergy A ctive Reason For Referral No Information Immunizations Vaccine Route Administration Date Status Comme nts Influenza Unknown 05/13/2018 Administered Problems Problem Type SNOMED Code ICD Code Onset Dates Problem Status W/U Status Risk Notes Problem 237670398 Encounter for screening for malignant neoplasm of colon (Z12.11) Active confirmed Problem [id number] Preprocedural examination (Z01.818) Active confirmed Problem 210246332 Family history o f colon cancer (Z80.0) Active confirmed Problem 104080669 Hx of adenomatou s colonic polyps (Z86.010) Active confirmed Problem 89124715 Hypertension, unspecified type (I10) Active confirmed Plan Of Treatment Pending Test Test Name Order Date GI BIOPSY 05/14/2019 Future Test Test Name Order Date COLONOSCOPY 07/15/2013 COLONOSCOPY 01/20/2019 Next Appt Details Provider Name:Frankie Staton , 02/17/2025 09:00:00 AM, [address], [address], [place], [address], Insurance Providers Payer Name Payer Address Payer Phone Subscriber Number Group Number Insured Name Patient Relationship to Insured Coverage Start Date Coverage End Date [facility] [address] [place], [place] [address] [phone] [id number] ANAIS JAMESON Self - patient is the insured Medical (General) History Medical History History ICD Code Hypertension--not on meds as of now Denies [place],DM,CVA,Lung disease,renal dise ase Neg colonoscopy [place] [address] Blackburn--just internal hemorrhoids and a hyperplastic polyp Tubular adenoma removed in 01/2000 with Mikey Blackburn during a Flex sig Neg. colonoscopy in 07/2013 except hemorr hoids and diverticulosis Sleep apnea but not using CPAP Surgical History Surgery Date(Month/Year) Varicocele Melanoma excision from left side of neck in 2016--superficial Hemorrhoidectomy 03/[address] Sergio pichardo
[2025-01-27 13:08] VITALS: BP 142/80; PULSE 73; O2SAT 97; BMI 36.7
--- NOTE | 2025-01-27 13:08 | MHC.PC.OV ---
Vital Signs 01/27/25 13:08 01/27/25 13:47 Height 5 ft 10 in Weight 256 lb BMI 36.7 BP 142/80 H 138/80 Blood Pressure Location Lt brachial Lt brachial Position Sitting Sitting Pulse 73 Pulse Source Pulse Oximeter Pulse Oximetry (%) 97 Oxygen Delivery Method Room Air Intake Visit Reasons: 6m follow up - see comments Investment Banking Associate Required: No Allergies codeine Allergy (Unknown, Verified 01/27/25 13:40) due to Hx of addiction, stays away from opiods Codeine Sulfate Allergy (Unknown, Uncoded 01/27/25 13:40) hx of etoh abuse, pt does not want to be prescribed opiods OPIODS Allergy (Unknown, Uncoded 01/27/25 13:40) hx of etoh abuse, pt does not want to be prescribed opiods Medication List - Last Reconciled 01/27/25 by SAVANNAH Abdullahi- atorvastatin 40 mg PO DAILY 90 days hydrochlorothiazide 25 mg PO DAILY irbesartan 300 mg PO DAILY Tobacco use date assessed: 01/27/25 Fall risk assessment: No Falls in past year Last assessed Fall Risk: 01/27/25 Dental Screening Dental Screen Date: 01/27/25 Did you have a dental visit in the last 12 months?: Yes Did you have a dental problem in the last 6 months where you did not have access to dental care?: No Was dental information given to patient?: Patient has dentist HPI 6m follow up - see comments HPI Details Chief Complaint The patient presents for a generalized follow-up visit. History of Present Illness The patient is a 64-year-old male presenting with a generalized follow-up visit. He has a history of dyslipidemia and denies any chest pain, shortness of breath, or dizziness. He also denies headaches and blurred vision and continues to follow up with pulmonary and cardiology specialists. The patient was previously on Breo for asthma management but discontinued it due to high copay costs. He reports no noticeable difference in symptoms after stopping the medication and is more concerned about potential asthma exacerbations during the winter. Currently, he denies any wheezing or dyspnea. For preventative care, the patient has a colonoscopy scheduled for next month. Social History Health Maintenance - Colonoscopy scheduled for next month as part of routine screening Review of Systems - Cardiovascular: Denies chest pain, shortness of breath, dizziness - Neurological: Denies headaches, blurred vision - Respiratory: Denies wheezing, dyspnea Physical Exam General: Cooperative, healthy appearing, comfortable, no acute distress and well developed Orientation: Patient oriented x3 Limitations: No limitations Head: Normal to inspection Ears: Hearing grossly normal bilaterally Nose: Normal external nose present Face and sinus: Normal facial exam Eyes: Appearance normal, both eyes and all related structures Neck: Normal visual inspection and Yes full ROM Respiratory: Normal respiratory effort and able to speak in complete sentences. Clear to auscultation bilaterally Cardiovascular: Regular rate and rhythm. Normal S1 and S2 GI: Normal to inspection. Soft to palpation and nontender Skin: No rashes or lesions noted Neuro: Patient oriented x3 Extremities: Normal to inspection Results Plan The patient will continue to monitor his dyslipidemia and follow up with necessary lab work in the future. Given the discontinuation of Breo due to cost, we will reassess the need for asthma management as winter approaches, considering the patient's concern about potential exacerbations. A colonoscopy is scheduled for next month as part of routine preventative care. Discussion Notes I discussed with the patient the importance of continuing to monitor his dyslipidemia and the plan to obtain further lab work in the future. We also talked about the discontinuation of Breo due to cost and the plan to revisit asthma management as winter approaches. The patient is aware of the upcoming colonoscopy scheduled for next month as part of his preventative care. Patient Instructions - Continue to monitor cholesterol levels and follow up with lab work as advised. - Be aware of asthma symptoms, especially as winter approaches, and discuss any concerns during follow-up visits. - Attend the scheduled colonoscopy next month for routine screening. [facility] Medical History Encounter for colorectal cancer screening Coronary artery calcification seen on CT scan Hemorrhoid Melanoma AA (alcohol abuse) Obesity Surgical History No pertinent past surgical history Family History Mother Alzheimer disease COPD (chronic obstructive pulmonary disease) Father No problems noted. Son No problems noted. Daughter No problems noted. Sister Myocardial infarction Other Mental health disorder Substance use disorder Social History Housing: House Alcohol intake: former Patient Tobacco Use Status: Current someday Tobacco user Tobacco use type: Cigar e-Cigarette/Vaping Use: Never Used Second Hand Smoke Exposure: No Current occupational status: employed Cognitive needs: No Hearing needs: No Vision needs: No Questionnaire PHQ-9 Over the last 2 weeks, how often have you been bothered by any of the following problems? 1. Little interest or pleasure in doing things: not at all 2. Feeling down, depressed, or hopeless: not at all 3. Trouble falling or staying asleep, or sleeping too much: several days 4. Feeling tired or having little energy: several days 5. Poor appetite or overeating: more than half the days 6. Feeling bad about yourself - or that you are a failure or have let yourself or your family down: not at all 7. Trouble concentrating on things, such as reading the newspaper or watching television: not at all 8. Moving or speaking so slowly that other people could have noticed. Or the opposite - being so fidgety or restless that you have been moving around a lot more than usual: not at all 9. Thoughts that you would be better off or of hurting yourself in some way: not at all Total score: 4 Depression Screening Interpretation: Negative Depression Screening Done: Yes 91966 - PHQ-9 Billing: Yes Source: Developed by Drs. Frankie Guillen, Atiya Stafford, Torito Wagner and colleagues, with an educational kyler from [employer]. Thrive Questionnaire Date Thrive assessed: 01/27/25 I am a: Patient What is your living situation today?: I have a steady place to live Within the past 12 months, did the food you bought not last and you didn't have the money to get more?: Never true Within the past 12 months, did you worry whether your food would run out before you got money to buy more?: Never true Do you have trouble paying for medicines?: Yes Do you have trouble getting transportation to medical appointments?: No Do you have trouble paying your heating and electricity bill?: Yes Do you have trouble taking care of your child, family member or friend?: No Do you have trouble with day-to-day activities such as bathing, preparing meals, shopping, managing finances, etc.?: No Are you currently unemployed and looking for a job?: No Are you interested in more education?: No Please select the resources that you would like help with: None Currently or been in a relationship where the following occur: No concerns reported THRIVE Score: 1 AUDIT C Alcohol Use Questionnaire (AUDIT-C) 1. How often do you have a drink containing alcohol?: Never 3. How often do you have six or more drinks on one occasion?: Never Total Score: 0 Score Reviewed/Action Taken: Yes REBEKA-7 AMB Questionnaire REBEKA-7 Date REBEKA - 7 assessed: 01/27/25 Feeling nervous, anxious, or on edge: 0 = Not at all Not being able to stop or control worryin = Not at all Worrying too much about different things: 0 = Not at all Trouble relaxin = Not at all Being so restless that it is hard to sit still: 0 = Not at all Becoming easily annoyed or irritable: 0 = Not at all Feeling afraid as if something awful might happen: 0 = Not at all Total REBEKA-7 score (0-4 normal; 5-9 mild; 10-14 moderate; 15-21 severe): 0 Source: Developed by Drs. Frankie Guillen, Atiya Stafford, Torito Wagner and colleagues, with an educational kyler from [employer]. REBEKA-7 Assessment Billing REBEKA-7 Assessment Tool: REBEKA-7 Assessment 68294 Physical exam (Primary Care) Vital Signs: Last Vital Signs Pulse 73 01/27/25 13:08 BP 142/80 H 01/27/25 13:08 Pulse Ox 97 01/27/25 13:08 Oxygen Delivery Method Room Air 01/27/25 13:08 BMI result Body Mass Index 36.7 Tobacco/Smoking Status: Tobacco use Status Tobacco use date assessed 01/27/25 01/27/25 13:10 Patient Tobacco Use Status Current someday Tobacco 01/27/25 13:10 Tobacco use type Cigar 01/27/25 13:10 e-Cigarette/Vaping Use Never Used 01/27/25 13:10 PHQ-9: PHQ-9 Score PHQ-9: Total score 4 01/27/25 13:41 Depression Screening Interpretation: Negative Thrive Assessment: Date of Thrive Assessment Date Thrive assessed 07/03/25 07/03/25 13:10 Currently or been in a relationship where the following occur: No concerns reported Coding Level of Care Code Est Pt Level 3 (44233) Diagnoses Hypercholesteremia E78.00 Additional Codes REBEKA-7 Assessment Billing - REBEKA-7 Assessment Tool: REBEKA-7 Assessment 70245 ([id number]) PHQ-9 - 14314 - PHQ-9 Billing: Yes ([id number]) Assessment & Plan Assessment & Plan (1) Hypercholesteremia: Code(s): E78.00 - Pure hypercholesterolemia, unspecified Category: Medical Plan . Orders: Orders Comprehensive [place]. Panel Fast Today E78.00 - Pure hypercholesterolemia, unspecified TSH reflex Free T4 Today E78.00 - Pure hypercholesterolemia, unspecified UA CC w/rflx Micro + Cult Today E78.00 - Pure hypercholesterolemia, unspecified Complete Blood Count Auto Diff Today E78.00 - Pure hypercholesterolemia, unspecified Lipid Panel Today E78.00 - Pure hypercholesterolemia, unspecified
[2025-01-27 13:47] VITALS: BP 138/80
== END 2025-01-27 14:01 | disposition home or self-care (01) ==
LOC: HO.HMCC 13:02
PROVIDERS: PCP Nurse Practitioner Family; Visit Provider Nurse Practitioner Family
DX: Z23 Encounter for immunization (principal); E78.00 Pure hypercholesterolemia, unspecified

== ENCOUNTER → 2025-01-27 13:02 | Outpatient (BNVA) | payer OTHER, SELFPAY | PROVIDERS: PCP Nurse Practitioner Family; Visit Provider Nurse Practitioner Family | DX: E78.00 Pure hypercholesterolemia, unspecified (principal); E66.9 Obesity, unspecified; Z23 Encounter for immunization; Z68.36 Body mass index [BMI] 36.0-36.9, adult | CPT/HCPCS: 90471; 90677; 96127 ==

== ENCOUNTER 2025-04-05 09:38 | Outpatient (AMB) | payer OTHER, SELFPAY ==
[2025-04-05 10:12] VITALS: BP 124/66; PULSE 64; BMI 36.8
--- NOTE | 2025-04-05 10:12 | MHC.OFFVIS ---
Vital Signs 04/05/25 10:12 Height 5 ft 10 in Weight 256 lb 2.834 oz BMI 36.8 BP 124/66 Blood Pressure Location Lt brachial Position Sitting Pulse 64 Pulse Source Pulse Oximeter Intake Visit Reasons: 1yr f/up Plater Production Required: No Accompanied by: Self / Same As Patient Allergies codeine Allergy (Unknown, Verified 01/27/25 13:40) due to Hx of addiction, stays away from opiods Codeine Sulfate Allergy (Unknown, Uncoded 01/27/25 13:40) hx of etoh abuse, pt does not want to be prescribed opiods OPIODS Allergy (Unknown, Uncoded 01/27/25 13:40) hx of etoh abuse, pt does not want to be prescribed opiods Medication List - Last Reconciled 04/05/25 by Medardo Epperson MD atorvastatin 40 mg PO DAILY 90 days fluticasone furoate-vilanterol 200-25 mcg/dose (Breo Ellipta) 1 ea inhalation DAILY hydrochlorothiazide 25 mg PO DAILY irbesartan 300 mg PO DAILY HPI Comments Details: Sanket returns for follow-up regarding coronary artery disease. To recall, strong family history of cardiac issues in family members including father, sister. Patient himself with multiple cardiovascular risk factors including obesity, hypertension, dyslipidemia, NIESHA. Based on calcium scoring, he does have CAD. No clear-cut angina. Overall, he feels just about the same as before. His weight is still quite high. He states because of his travel and busy work schedule he has not been able to lose much weight. No clear cardiac symptoms otherwise. [facility] Medical History Encounter for colorectal cancer screening Coronary artery calcification seen on CT scan Hemorrhoid Melanoma AA (alcohol abuse) Obesity Surgical History No pertinent past surgical history Family History Mother Alzheimer disease COPD (chronic obstructive pulmonary disease) Father No problems noted. Son No problems noted. Daughter No problems noted. Sister Myocardial infarction Other Mental health disorder Substance use disorder Social History Housing: House Alcohol intake: former Patient Tobacco Use Status: Current someday Tobacco user Tobacco use type: Cigar e-Cigarette/Vaping Use: Never Used Second Hand Smoke Exposure: No Current occupational status: employed Cognitive needs: No Hearing needs: No Vision needs: No Review of Systems Const Denies chills, Denies fatigue, Denies fever(s), Denies frequent falls, Denies weakness, Denies weight gain and Denies weight loss ENT Denies dizziness Card Denies chest pain, Denies leg edema, Denies lightheadedness, Denies palpitations, Denies dyspnea and Denies dyspnea on exertion Resp Denies cough, Denies dyspnea and Denies dyspnea on exertion GI Denies hematochezia Musc Denies abnormal gait, Denies muscle weakness, Denies numbness, Denies radiating pain into limb and Denies tingling Neuro Denies abnormal gait, Denies dizziness, Denies frequent falls, Denies numbness, Denies tingling and Denies weakness Endo Denies fatigue and Denies palpitations Physical Exam Vital Signs: Last Vital Signs Pulse 64 04/05/25 10:12 BP 124/66 04/05/25 10:12 BMI result Body Mass Index 36.8 Const General: comfortable and no acute distress Orientation/consciousness: patient oriented x3 HEENT Other: Unremarkable Head: Yes normal to inspection Neck Neck: Yes normal visual inspection Chest Chest palpation & inspection: normal inspection of the chest Resp Auscultation: clear to auscultation bilaterally Cardio Palpation: normal PMI Heart sounds: S1 normal heart sound present, S2 normal heart sound present, no gallops, no murmurs and no rubs GI Palpation (GI): Soft to palpation Back/Spine/Pelvis Other: unremarkable Skin General skin exam: no rashes or lesions noted Neuro General: patient oriented x3 Extrem General: Yes normal to inspection Psych Mental Status: mental status grossly normal Assessment & Plan Assessment & Plan (1) Coronary artery calcification seen on CT scan: Code(s): I25.10 - Atherosclerotic heart disease of [place] coronary artery without angina pectoris Category: Medical (2) Hypertension: Code(s): I10 - Essential (primary) hypertension Category: Medical Qualifiers: Hypertension type: primary hypertension Qualified Code(s): I10 - Essential (primary) hypertension (3) Hypercholesteremia: Code(s): E78.00 - Pure hypercholesterolemia, unspecified Category: Medical (4) Morbid obesity due to excess calories: Code(s): E66.01 - Morbid (severe) obesity due to excess calories Category: Medical Plan Cardiac studies reviewed. Echocardiogram from 2019 with LVEF of 60-65% and otherwise unremarkable. In the exercise stress test from 2019, he was able to exercise on Rom protocol for >7 minutes and reached 8.6 METS. No angina and no EKG evidence of ischemia. Prior calcium scoring CT scan with a score of 58. It was repeated 2022 and that showed score of 134 distributed between the LAD and circumflex. Overall, we can treat him as stable coronary disease and aggressively manage risk factors. Main issue continues to be weight and we discussed at length today. He must lose weight to decrease future cardiovascular risks and he understands that very well. With regard to NIESHA, he is not interested in CPAP. Hopefully, losing weight can help. On meds for blood pressures/lipids and stable. Follow up in one year. Total time spent including review of data, counseling, documentation, coordination of care-32 minutes. Coding Level of Care Code Est Pt Level 4 (99089) Diagnoses Coronary artery calcification seen on CT scan I25.10 Primary hypertension I10 Hypertension type: primary hypertension Hypercholesteremia E78.00 Morbid obesity due to excess calories E66.01
--- OUTSIDE RECORDS SUMMARY | 2025-04-05 11:07 | XMS_ITS | Patient Health Record ---
Author Organization [facility] Address [address] [place] [address] Care Team Providers Care Cosmetologist Apprentice Name Role Phone TIFFANY ARTEAGA Primary Care Provider Frankie Georges [phone] Allergies Allergen (clinical drug ingredient) Drug/Non Drug Allergy documented on EMR Reaction Allergy Type Onset Date Status codeine Codeine Sulfate Unknown Drug Allergy A ctive Reason For Referral No Information Medications Medication SIG (Take, Route, Frequency, Duration) Notes Start Date End Date Status Irbesartan 300 MG TAKE 1 TABLET BY RENETTA TH DAILY Oral for 90 Days Active hydroCHLOROthiazide 25 MG TAKE 1 TABLET BY MOUTH DAILY Oral for 90 Days Active Atorvastatin Calcium 40 MG Oral for 90 Days Active Immunizations Vaccine Route Administration Date Status Comme nts Influenza Unknown 05/13/2018 Administered Influenza Unknown 04/13/2024 Administered Problems Problem Type SNOMED Code ICD Code Onset Dates Problem Status W/U Status Risk Notes Problem [id number] Encounter for screening for malignant neoplasm of colon (Z12.11) Active confirmed Problem 288000494215995 Preprocedural examination (Z01.818) Active confirmed Problem 040646964 Family history o f colon cancer (Z80.0) Active confirmed Problem 168142430 Hx of adenomatou s colonic polyps (Z86.010) Active confirmed Problem 67269638 Hypertension, unspecified type (I10) Active confirmed Vital Signs Temperature 96.9 degrees Fahrenheit 02/17/2025 Blood pressure diastolic 01 mm Hg 02/17/2025 Height 69.25 in 02/17/2025 Blood pressure systolic 001 mm Hg 02/17/2025 Weight 255.6 lbs 02/17/2025 BMI 37.47 kg/m2 02/17/2025 Procedures Procedure Date Ordered Date Performed Result Body Sit e COLONOSCOPY 02/17/2025 N/A Encounters Encounter Location Date Provider Diagnosis [facility] [address] [place] [address] 02/17/2025 Frankie Staton Encounter for screen ing for malignant neoplasm of colon Z12.11 ; Preprocedural examination Z01.818 ; Hx of adenomatous colonic polyps Z86.010 and Family history of colon cancer Z80.0 Assessments Encounter Date Diagnosis (ICD Code) Assessment Notes Treatment Notes Treatment Clinical Notes Section Notes 02/17/2025 Encounter for screening for malignant neoplasm of colon (ICD-10 - Z12.11) Overall, Sanket appears well. Given his personal history of a tubular adenoma, family history of colon cancer, and his last colonoscopy being over 5 years ago, I did recommend a follow-up colonoscopy for further screening purposes. We did review the rationale for this in regard to colon cancer prevention. Full consent has been obtained for this, including risks of bleeding and perforation. The procedure will be done with monitored anesthesia care. He was given the below instructions regarding adjustment of his medication for the procedure. Sanket was comfortable with this plan. Thank you again for allowing me to participate in Sanket's care. I shall continue to keep you advised of his progress. 02/17/2025 Preprocedural examination (ICD-10 - Z01.818) Overall, Sanket appears well. Given his personal history of a tubular adenoma, family history of colon cancer, and his last colonoscopy being over 5 years ago, I did recommend a follow-up colonoscopy for further screening purposes. We did review the rationale for this in regard to colon cancer prevention. Full consent has been obtained for this, including risks of bleeding and perforation. The procedure will be done with monitored anesthesia care. He was given the below instructions regarding adjustment of his medication for the procedure. Sanket was comfortable with this plan. Thank you again for allowing me to participate in Sanket's care. I shall continue to keep you advised of his progress. 02/17/2025 Hx of adenomatous colonic polyps (ICD-10 - Z86.010) Overall, Sanket appears well. Given his personal history of a tubular adenoma, family history of colon cancer, and his last colonoscopy being over 5 years ago, I did recommend a follow-up colonoscopy for further screening purposes. We did review the rationale for this in regard to colon cancer prevention. Full consent has been obtained for this, including risks of bleeding and perforation. The procedure will be done with monitored anesthesia care. He was given the below instructions regarding adjustment of his medication for the procedure. Sanket was comfortable with this plan. Thank you again for allowing me to participate in Sanket's care. I shall continue to keep you advised of his progress. 02/17/2025 Family history of colon cancer (ICD-10 - Z80.0) Overall, Sanket appears well. Given his personal history of a tubular adenoma, family history of colon cancer, and his last colonoscopy being over 5 years ago, I did recommend a follow-up colonoscopy for further screening purposes. We did review the rationale for this in regard to colon cancer prevention. Full consent has been obtained for this, including risks of bleeding and perforation. The procedure will be done with monitored anesthesia care. He was given the below instructions regarding adjustment of his medication for the procedure. Sanket was comfortable with this plan. Thank you again for allowing me to participate in Sanket's care. I shall continue to keep you advised of his progress. Plan Of Treatment Pending Test Test Name Order Date COLONOSCOPY 02/17/2025 Future Test Test Name Order Date COLONOSCOPY 07/15/2013 COLONOSCOPY 01/20/2019 Next Appt Details Provider Name:Frankie Staton , 05/30/2025 10:30:00 AM, [address] [place] [address], [id number], Insurance Providers Payer Name Payer Address Payer Phone Subscriber Number Group Number Insured Name Patient Relationship to Insured Coverage Start Date Coverage End Date [facility] [address] [place] [phone] [id number] SANKET JAMESON Self - patient is the insured Medical (General) History Medical History History ICD Code Hypertension- not on meds as of now Denies DC,DM,CVA,Lung disease,renal dise ase Neg [place] [address] Blackburn- just internal hemorrhoids and a hyperplastic polyp Tubular adenoma removed in 01/2000 with Mikey Blackburn during a Flex sig Neg. colonoscopy in 07/2013 except hemorr hoids and diverticulosis Sleep apnea but not using CPAP Chronic cough- uses an inhaler-sees Dr. Ruiz Screening colonoscopy in 2019 with remov al of only hyperplastic polyp Surgical History Surgery Date(Month/Year) Hemorrhoidectomy 03/[address] Hill o Melanoma excision from left side of neck in 2017- superficial Varicocele
== END 2025-04-05 10:26 | disposition home or self-care (01) ==
PROVIDERS: PCP Nurse Practitioner Family; Visit Provider Internal Medicine
DX: I25.10 Atherosclerotic heart disease of native coronary artery without angina pectoris (principal); I10 Essential (primary) hypertension; E78.00 Pure hypercholesterolemia, unspecified; E66.01 Morbid (severe) obesity due to excess calories
CPT/HCPCS: 99214

== ENCOUNTER 2025-05-30 09:26 | Day surgery (SDC) | payer OTHER, SELFPAY ==
--- OUTSIDE RECORDS SUMMARY | 2025-05-03 12:54 | XMS_ITS | Clinical Summary ---
Author Organization [employer] Address [address] [place] [address] Care Team Providers Care Import Dispatcher Name Role Phone Unavailable Primary Care Provider [...] [employer] 12/29/2023 12/27/2022 COVID-19 Vaccine ( season) 2025 11/23/2022, 03/16/2022, 05/25/2021, Additional history exists Influenza Vaccine (#1) 2025 , 05/18/2018, 05/09/2017, Additional history exists Dental X-Ray: [...]
--- OUTSIDE RECORDS SUMMARY | 2025-05-03 12:54 | XMS_ITS | Patient Health Record ---
Author Organization [facility] Address [address] [place] [address] Care Team Providers Care Jacker Feeder Name Role Phone TIFFANY ARTEAGA Primary Care Provider Frankie Georges [phone] Allergies Allergen (clinical drug ingredient) Drug/Non Drug [...] Problem Status W/U Status Risk Notes Problem 048057030 Encounter for screening for malignant neoplasm of colon (Z12.11) Active confirmed Problem [id number] Preprocedural examination (Z01.818) Active confirmed Problem 355434624 Family history o f colon cancer (Z80.0) Active confirmed Problem 502541786 Hx of adenomatou s colonic polyps (Z86.010) Active confirmed Problem 31345251 Hypertension, unspecified type (I10) Active confirmed Vital Signs Temperature 96.9 degrees Fahrenheit 02/17/2025 Blood pressure diastolic 01 mm Hg 02/17/2025 Height 69.25 in 02/17/2025 Blood pressure systolic 001 mm Hg 02/17/2025 Weight 255.6 lbs 02/17/2025 BMI 37.47 kg/m2 02/17/2025 Procedures Procedure Date Ordered Date Performed Result Body Sit e COLONOSCOPY 02/17/2025 N/A Encounters Encounter Location Date Provider Diagnosis [facility] [address] [place] [address] 02/17/2025 Frankie Staton Encounter for screen ing [...] Provider Name:Frankie Staton , 05/30/2025 10:30:00 AM, [address] [place] [address], [id number], Insurance Providers Payer Name Payer Address Payer Phone Subscriber Number Group Number Insured Name Patient Relationship to Insured Coverage Start Date Coverage End Date [facility] [address] [place] [phone] [id number] SANKET JAMESON Self - patient is the insured Medical (General) History Medical History History ICD Code Hypertension- not on meds as of now Denies [place],DM,CVA,Lung disease,renal dise ase Neg colonoscopy in 2000 [...]
[2025-05-26 14:19] VITALS: BMI 37.5
[2025-05-30 09:38] VITALS: BMI 35.8
[2025-05-30 09:45] VITALS: BP 136/85; PULSE 71; RESP 16; TEMP 36.4; O2SAT 95
[2025-05-30] MEDS: Lactated Ringers 1,000 ML 100 ML IVCONT (09:58)
--- NOTE | 2025-05-30 10:00 | HO.ANESPROP2 ---
Documented by User: Karmen Pace NP 05/26/25 10:24 HPI - Anesthesia Eval Consult details Narrative: 64yo M for Colonoscopy Follows [facility] for stable CAD. Last office visit 03/2025 - rec'd weight loss, 1 year routine f/u [facility] Active Problems Active Problems: All Active Problems Morbid obesity due to excess calories (Acute) Change in voice (Acute) Urinary dribbling (Acute) History of urinary hesitancy (Acute) Nocturia (Acute) Weak urinary stream (Acute) Enlarged prostate (Acute) Cough variant asthma (Acute) Pulmonary nodules (Acute) Bronchiectasis (Acute) Chronic cough (Acute) Coronary artery calcification seen on CT scan (Acute) Family history of heart disease (Acute) Family history of Alzheimer's disease (Acute) Word finding difficulty (Acute) Memory changes (Acute) Snoring (Acute) Screening PSA (prostate specific antigen) (Acute) Physical exam (Acute) Overweight (BMI 25.0-29.9) (Acute) Obstructive sleep apnea (Acute) Vitamin D deficiency (Acute) Arthritis (Acute) Hypercholesteremia (Acute) Hypertension (Acute) Obesity (Acute) Mild obstructive sleep apnea (Acute) Fatigue (Acute) Shortness of breath (Acute) Past Medical History Medical History (Updated 05/30/25 @ 09:38 by Lisa Bowman RN) CAD (coronary artery disease) Asthma Arthritis Melanoma History of varicocele Elevated cholesterol HTN (hypertension) NIESHA (obstructive sleep apnea) Coronary artery calcification seen on CT scan AA (alcohol abuse) Obesity Family History Family History Mother Alzheimer disease COPD (chronic obstructive pulmonary disease) Father No problems noted. Son No problems noted. Daughter No problems noted. Sister Myocardial infarction Other Mental health disorder Substance use disorder Surgical History Surgical History (Updated 05/26/25 @ 14:16 by Sharmila Cobos RN) History of melanoma excision Hx of hemorrhoidectomy H/O colonoscopy Social History Social History Housing: House Alcohol intake: former Patient Tobacco Use Status: Current someday Tobacco user Tobacco use type: Cigar e-Cigarette/Vaping Use: Never Used Second Hand Smoke Exposure: No Use of substances other than those prescribed or required for medical reasons: No Are you DNR?: No Advance Directives: No Advance Directives Information Provided: Yes Current occupational status: employed Cognitive needs: No Hearing needs: No Vision needs: No Meds Allergies Allergy/AdvReac Type Severity Reaction Status Date / Time codeine Allergy Unknown due to Hx Verified 01/27/25 13:40 of addiction, stays away from opiods OPIODS Allergy Unknown hx of etoh Uncoded 01/27/25 13:40 abuse, pt does not want to be prescribed opiods Home Medications ?Medication ?Instructions ?Recorded ?Confirmed ?Last Taken ?Type fluticasone furoate 200 1 ea inhalation DAILY 04/05/25 05/30/25 Unknown History mcg-vilanterol 25 mcg/dose inhalation powder (Breo Ellipta) Exam Narrative Narrative: Per 03/2025 cardiac office visit Cardiac studies reviewed. Echocardiogram from 2019 with LVEF of 60-65% and otherwise unremarkable. In the exercise stress test from 2019, he was able to exercise on Rom protocol for >7 minutes and reached 8.6 METS. No angina and no EKG evidence of ischemia. Prior calcium scoring CT scan with a score of 58. It was repeated 2022 and that showed score of 134 distributed between the LAD and circumflex. Assessment and Plan Assessment Anesthesia Assessment: Chart Reviewed Documented by User: Kay Katz DO 05/30/25 10:03 [facility] Past Medical History Medical History (Updated 05/30/25 @ 09:38 by Lisa Bowman RN) CAD (coronary artery disease) Asthma Arthritis Melanoma History of varicocele Elevated cholesterol HTN (hypertension) NIESHA (obstructive sleep apnea) Coronary artery calcification seen on CT scan AA (alcohol abuse) Obesity Family History Family History Mother Alzheimer disease COPD (chronic obstructive pulmonary disease) Father No problems noted. Son No problems noted. Daughter No problems noted. Sister Myocardial infarction Other Mental health disorder Substance use disorder Family history of problems with anesthesia: No Surgical History Surgical History (Updated 05/26/25 @ 14:16 by Sharmila Cobos RN) History of melanoma excision Hx of hemorrhoidectomy H/O colonoscopy History of Problems with Anesthesia: No Social History Social History Housing: House Alcohol intake: former Patient Tobacco Use Status: Current someday Tobacco user Tobacco use type: Cigar e-Cigarette/Vaping Use: Never Used Second Hand Smoke Exposure: No Use of substances other than those prescribed or required for medical reasons: No Are you DNR?: No Advance Directives: No Advance Directives Information Provided: Yes Current occupational status: employed Cognitive needs: No Hearing needs: No Vision needs: No Meds Allergies Allergy/AdvReac Type Severity Reaction Status Date / Time codeine Allergy Unknown due to Hx Verified 01/27/25 13:40 of addiction, stays away from opiods OPIODS Allergy Unknown hx of etoh Uncoded 01/27/25 13:40 abuse, pt does not want to be prescribed opiods Home Medications ?Medication ?Instructions ?Recorded ?Confirmed ?Last Taken ?Type fluticasone furoate 200 1 ea inhalation DAILY 04/05/25 05/30/25 Unknown History mcg-vilanterol 25 mcg/dose inhalation powder (Breo Ellipta) Exam Exam Date and Time: 05/30/25 1000 Height,Weight and Vital Signs: Height 5 ft 10 in Weight 113.3 kg Vital Signs Temperature 97.5 F 05/30/25 09:45 Pulse Rate 71 05/30/25 09:45 Respiratory Rate 16 05/30/25 09:45 Blood Pressure 136/85 05/30/25 09:45 Pulse Oximetry 95 05/30/25 09:45 Oxygen Delivery Method Room Air 05/30/25 09:45 Temperature 97.5 F 05/30/25 09:45 Pulse Rate 71 05/30/25 09:45 Respiratory Rate 16 05/30/25 09:45 Blood Pressure 136/85 05/30/25 09:45 Pulse Oximetry 95 05/30/25 09:45 Oxygen Delivery Method Room Air 05/30/25 09:45 Airway Mallampati Class: II TM Dist: >3cm Neck ROM: Full Loose/Missing/Broken Teeth: No (patient denies any loose or broken teeth) Heart: S1S2 Lungs: CTAB Assessment and Plan Assessment Anesthesia Assessment: Anesthesia Plan Discussed and Chart Reviewed Final Anesthetic Review Family History of Problems with Anesthesia: No History of Problems with Anesthesia: No NPO: Yes ASA Class: II Final Preanesthetic Review: No Changes in Pt Med Stat, Meds/Allgs Chart Reviewed, Consent Obtained/Reviewed and Anes Risks/Benef Reviewed Patient Risk: Low Procedure Risk: Low Anesthetic Plan Anesthetic Plan: MAC: and Agree w/ Assess. and Plan Disposition: Standard PACU
[2025-05-30 11:41] VITALS: BP 90/63; PULSE 68; RESP 16; TEMP 36.1; O2SAT 94
--- NOTE | 2025-05-30 11:50 | P.BOP_ITS ---
Brief Operative Note Date of Service: 05/30/25 Pre-op diagnosis: Screening Post-op diagnosis: other (Polyps) Procedure: Colonoscopy to the cecum with bx/removal of polyps Surgeon: Frankie Staton MD Anesthesia: MAC Was an Sandwich Board Carrier used for this Procedure?: No Estimated blood loss (mL): 2.0 Pathology: other (A. Ascending colon polyps) Condition: stable Disposition: PACU
[2025-05-30 11:56] VITALS: BP 100/71; PULSE 63; RESP 16; TEMP 36.1; O2SAT 96
--- NOTE | 2025-05-30 22:01 | OP_ITS ---
DATE OF SERVICE: 05/30/2025 SURGEON: Frankie Staton MD INDICATIONS: The patient presents for evaluation of colorectal cancer screening, personal history of tubular adenoma of the colon, family history of colon cancer. Full consent has been obtained from him for this, including risks of bleeding and perforation. PREOPERATIVE DIAGNOSIS: POSTOPERATIVE DIAGNOSIS: PROCEDURE PERFORMED: Colonoscopy to cecum with biopsy and removal of polyps. ESTIMATED BLOOD LOSS: COMPLICATIONS: ANESTHESIA: Medication used, monitored anesthesia care. ASSISTANTS: SPECIMENS: PREOPERATIVE DIAGNOSES: Colorectal cancer screening, personal history of tubular adenoma of the colon, and family history of colon cancer. POSTOPERATIVE DIAGNOSES: Colorectal cancer screening, personal history of tubular adenoma of the colon, family history of colon cancer, small colon polyps, diverticulosis, internal hemorrhoids. DESCRIPTION OF PROCEDURE: The patient was placed in left lateral decubitus position. The digital rectal exam revealed no abnormalities. The Olympus video pediatric colonoscope was entered into the rectum and advanced easily to the cecum. Once in the cecum, I did identify normal-appearing cecal pouch with appendiceal orifice and a normal-appearing ileocecal valve. The entire cecum and ileocecal valve appeared normal. The scope was then slowly withdrawn assessing all mucosal surfaces carefully. Preparation was excellent. In the ascending colon, there were 2 flat, less than 5 mm polyps, both of which were biopsied and completely removed with cold biopsy forceps. I did not visualize any other polyps, colitis, nor angiodysplasia. There was a mild amount of sigmoid diverticulosis. In the rectum, scope was retroflexed visualizing . The rectal mucosa appeared normal. Scope was straightened out and withdrawn from the patient. He tolerated the procedure well and was returned to the recovery area in stable condition. IMPRESSION: 1. Small colon polyps. 2. Diverticulosis. 3. Internal hemorrhoids. PLAN: The results of the biopsy will be checked. I would recommend a repeat colonoscopy in 5 years for further screening. He will otherwise see me on a p.r.n. basis. Frankie Staton MD RMKailyn/COLIN / [phone]
== END 2025-05-30 12:25 | disposition home or self-care (01) ==
PROVIDERS: PCP Nurse Practitioner Family; Visit Provider Internal Medicine
PROC: 0DJD8ZZ Inspection of Lower Intestinal Tract, Via Natural or Artificial Opening Endoscopic (ICD-10-PCS; CPT 45378; principal; 2025-05-30 10:30)
DX: Z12.11 Encounter for screening for malignant neoplasm of colon (principal); Z86.0101 Personal history of adenomatous and serrated colon polyps; Z80.0 Family history of malignant neoplasm of digestive organs; D12.2 Benign neoplasm of ascending colon; K57.30 Diverticulosis of large intestine without perforation or abscess without bleeding; K64.8 Other hemorrhoids; I10 Essential (primary) hypertension; G47.33 Obstructive sleep apnea (adult) (pediatric); R05.3 Chronic cough; Z85.820 Personal history of malignant melanoma of skin; F10.21 Alcohol dependence, in remission; Z72.0 Tobacco use; Z79.899 Other long term (current) drug therapy; Z88.5 Allergy status to narcotic agent
CPT/HCPCS: 45380; 88305; J2003; J2704

== ENCOUNTER 2025-06-06 07:37 | Outpatient (REF) | payer OTHER, SELFPAY ==
--- OUTSIDE RECORDS SUMMARY | 2025-05-30 05:30 | XMS_ITS ---
Author Organization [facility] Address [address] [place] [address] Care Team Providers Care Certified Surgical Assistant Name Role Phone TIFFANY ARTEAGA Primary Care Provider Frankie Georges [phone] REASON FOR VISIT screening colonoscopy Encounters Encounter Location Date Provider Diagnosis [facility] [address] [place] [id number] 05/30/2025 Frankie Staton Plan Of Treatment No Information Progress Notes * TRINO ANAIS DurhamDOB:[birth year] (64 yo M)Acc No.[id number]:05/30/2025 COLON WITH MAC Patient: ANAIS WEBBER J Provider: Jamila Staton MD :1960 A ge:64 Y S ex:Male Date:05/30/2025 Address:[address] [id number] Pcp:TIFFANY ARTEAGA Subjective: * Chief Complaints: * 1 . Screening colonoscopy. * Medical History: Objective: * Vitals: Assessment: Plan: * Treatment: * * The named appointment provid er may or may not be the originator of this progress note, and it is not deemed complete until electronically signed by the appointment provider. Sign off status: Pending * Provider: Jamila Staton MD Date: 07/30/2024 Generated for Mati ng/Farong/eTransmitting on: 08/06/2024 07:40 AM EST
--- OUTSIDE RECORDS SUMMARY | 2025-06-06 07:40 | XMS_ITS | Patient Health Record ---
Author Organization [facility] Address [address] [place] [address] Care Team Providers Care Direct Care Worker Name Role Phone TIFFANY ARTEAGA Primary Care Provider Frankie Georges [phone] Allergies Allergen (clinical drug ingredient) Drug/Non Drug Allergy documented on EMR Reaction Allergy Type Onset Date Status codeine Codeine Sulfate Unknown Drug Allergy A ctive Results Component Value Reference Range Notes Pathology (Not yet reviewed by provider) Interpretation: Performing Lab:[facility], [address] [place] [id number] Notes/Report: Reason For Referral No Information Medications Medication SIG (Take, Route, Frequency, Duration) Notes Start Date End Date Status Irbesartan 300 MG TAKE 1 TABLET BY RENETTA TH DAILY Oral; Duration: 90 Days Active hydroCHLOROthiazide 25 MG TAKE 1 TABLET BY MOUTH DAILY Oral; Duration: 90 Days Active Atorvastatin Calcium 40 MG Oral; Duration: 90 Days Active Immunizations Vaccine Route Administration Date Status Comme nts Influenza Unknown 05/13/2018 Administered Influenza Unknown 04/13/2024 Administered Problems Problem Type SNOMED Code ICD Code Onset Dates Problem Status W/U Status Risk Notes Problem Screening for malignant neoplasm of colon (893484712) Encounter for screening for malignant neoplasm of colon (Z12.11) Active confirmed Problem Preprocedural examination (627568727998975) Preprocedural examination (Z01.818) Active confirmed Problem Family History of Cancer of Colon (Situation) (632474377) Family history of colon cancer (Z80.0) Active confirmed Problem History of adenomatous polyp of colon (288445501) Hx of adenomatous colonic polyps (Z86.010) Active confirmed Problem Essential hypertension (45350172) Hypertension, unspecified type (I10) Active confirmed Vital Signs Temperature 96.9 degrees Fahrenheit 02/17/2025 Blood pressure diastolic 01 mm Hg 02/17/2025 Height 69.25 in 02/17/2025 Blood pressure systolic 001 mm Hg 02/17/2025 Weight 255.6 lbs 02/17/2025 BMI 37.47 kg/m2 02/17/2025 Procedures Procedure Date Ordered Date Performed Result Body Sit e COLONOSCOPY 02/17/2025 N/A Encounters Encounter Location Date Provider Diagnosis [facility] [address] [place], [place] [phone] 05/30/2025 Frankie Staton [facility] [address] [place] [address] 02/17/2025 Frankie Staton Encounter for screening for malignant neoplasm of colon Z12.11 ; [...] Test Test Name Order Date COLONOSCOPY 02/17/2025 Pathology 05/30/2025 Future Test Test Name Order Date COLONOSCOPY 07/15/2013 COLONOSCOPY 01/20/2019 Insurance Providers Payer Name Payer Address Payer Phone Subscriber Number Group Number Insured Name Patient Relationship to Insured Coverage Start Date Coverage End Date [facility] [address] [place] [phone] [id number] SANKET JAMESON Self - patient is the insured Medical (General) History Medical History History ICD Code Hypertension- not on meds as of now Denies ID,DM,CVA,Lung disease,renal dise ase Neg colonoscopy in 2000 [...]
--- OUTSIDE RECORDS SUMMARY | 2025-06-06 07:40 | XMS_ITS | Clinical Summary ---
Author Organization [employer] Address [address] [place] [address] Care Team Providers Care Motion Picture Projectionist Apprentice Name Role Phone Unavailable Primary Care Provider [...]
[2025-06-06 10:18] LABS: Appearance Urine Turbid; Glucose Urine UA Negative (Negative); MANUAL DIFF FLAG NO; PH 5.5 (5.0-9.0); Specific Gravity - Urine 1.025 (1.005-1.025)
[2025-06-06 10:33] LABS: Hematocrit 43.0 % (42.0-52.0); Hemoglobin 14.7 g/dl (14.0-18.0); Imm Gran Abs Auto 0.04 X10*3/uL (0.00-0.03); Imm Gran Pct Auto 0.7 % (0.0-0.4); Lymphocytes Absolute Auto 1.2 X10*3/uL (1.2-4.9); Mean Corpuscular HGB Conc 34.2 g/dl (31.0-36.0); Mean Corpuscular Hemoglobin 30.8 pg (27.0-33.0); Mean Corpuscular Volume 90.0 fL (80.0-98.0); NRBC Abs Auto 0.000 X10*3/uL (0.0-0.012); NRBC Pct Auto 0.0 /100WBC (0.0-0.2); Platelet Count 249 X10*3/uL (160-400); Red Blood Count 4.78 X10*6/uL (4.60-5.80); White Blood Count 5.9 X10*3/uL (4.8-10.8)
[2025-06-06 11:01] LABS: Alanine Aminotransferase 37 U/L (0-40); Albumin Level 4.2 g/dL (3.5-5.0); Alkaline Phosphatase 86 U/L (39-117); Anion Gap 11 (12-20); Aspartate Amino Transferase 27 U/L (5-37); Blood Urea Nitrogen 18 mg/dL (9-16); Calcium 9.3 mg/dL (8.4-10.2); Carbon Dioxide 24 mmol/L (22-29); Chloride 110 mmol/L (96-108); Cholesterol 113 mg/dL (<200); Estimated Glomerular Filt Rate > 60; HDL Cholesterol 31 mg/dL (>40); Potassium 3.7 mmol/L (3.3-5.1); Sodium 141 mmol/L (135-145); Total Protein 6.7 g/dL (6.5-8.0); Triglycerides 100 mg/dL (<150)
== END 2025-06-06 07:38 | disposition home or self-care (01) ==
LOC: HO.HMGCLDS 07:37
PROVIDERS: PCP Nurse Practitioner Family; Visit Provider Nurse Practitioner Family
DX: Z00.00 Encounter for general adult medical examination without abnormal findings (principal); E78.00 Pure hypercholesterolemia, unspecified; E66.9 Obesity, unspecified; K59.00 Constipation, unspecified; R19.7 Diarrhea, unspecified
CPT/HCPCS: 36415; 80053; 80061; 81003; 84443; 85025; 96127

== ENCOUNTER 2025-06-06 15:45 | Outpatient (AMB) | payer OTHER, SELFPAY ==
[2025-06-06 15:49] VITALS: BP 114/80; PULSE 67; RESP 16; TEMP 36.6; O2SAT 95; BMI 36.0
--- NOTE | 2025-06-06 15:49 | A.OFFPC_ITS ---
Vital Signs 06/06/25 15:49 Height 5 ft 10 in Weight 251 lb BMI 36.0 BP 114/80 Blood Pressure Location Lt brachial Position Sitting Respiration 16 Pulse 67 Temp 97.8 F Temp Source Oral Pulse Oximetry (%) 95 Oxygen Delivery Method Room Air Intake Visit Reasons: PE - see comments Senior Financial Consultant Required: No Accompanied by: Self / Same As Patient Allergies codeine Allergy (Unknown, Verified 06/06/25 15:50) due to Hx of addiction, stays away from opiods OPIODS Allergy (Unknown, Uncoded 06/06/25 15:50) hx of etoh abuse, pt does not want to be prescribed opiods Medication List - Last Reconciled 06/06/25 by SAVANNAH Abdullahi- atorvastatin 40 mg PO DAILY 90 days budesonide-formoterol 80-4.5 mcg/actuation (Symbicort) 1 inh inhalation BID hydrochlorothiazide 25 mg PO DAILY irbesartan 300 mg PO DAILY Tobacco use date assessed: 06/06/25 Fall risk assessment: 1 Fall in past year Last assessed Fall Risk: 06/06/25 Dental Screening Dental Screen Date: 06/06/25 Did you have a dental visit in the last 12 months?: Yes Did you have a dental problem in the last 6 months where you did not have access to dental care?: No Was dental information given to patient?: Patient has dentist HPI PE - see comments HPI Details History of Present Illness The patient is a 64-year-old male presenting for a physical exam. He reports feeling well overall and is followed by a urologist and a product support specialist on a regular basis. The patient has a history of obesity. Recent laboratory results revealed an elevated fasting blood sugar. He complains of alternating constipation and diarrhea but denies melena or hematochezia. Health Maintenance - The patient presents for a physical ex am. - The patient was counseled on diet and portion sizes due to elevated fasting blood sugar. - A prostate-specific antigen (PSA) test is pending and will be obtained in the near future. - He sees a urologist and a product support specialist on a regular basis. Social History - Diet: The patient was encouraged to wo rk on his diet and portion sizes. Review of Systems - Constitutional: Reports feeling well o verall. - Cardiovascular: Denies chest pain. - Respiratory: Denies shortness of breat h. - Gastrointestinal: Reports alternating constipation and diarrhea. Denies abdominal pain, melena, or hematochezia. Physical Exam General: Cooperative, healthy appearing, comfortable, no acute distress and well developed, obese Orientation: Patient oriented x3 Limitations: No limitations Head: Normal to inspection Ears: Hearing grossly normal bilaterally Nose: Normal external nose present Face and sinus: Normal facial exam Eyes: Appearance normal, both eyes and all related structures Neck: Normal visual inspection and Yes full ROM Respiratory: Normal respiratory effort and able to speak in complete sentences. Clear to auscultation bilaterally Cardiovascular: Regular rate and rhythm. Normal S1 and S2 GI: Normal to inspection. Soft to palpation and nontender : Testicles without masses/lesions and no hernias appreciated. Left testicle is large Skin: No rashes or lesions noted Neuro: Patient oriented x3 Extremities: Normal to inspection Results - Labs: Recent labs showed an elevated f asting blood sugar. - Labs: PSA test is pending. Plan 1. Annual Physical Examination The patient presented for a physical examination, which was noted to be benign. Recent labs were reviewed. A follow-up is scheduled for six months. 2. Impaired fasting glucose R73.01 The patient's recent labs showed an elevated fasting blood sugar. He was encouraged to work on his diet and portion sizes, and he reported understanding this advice. 3. Obesity The patient is obese. Dietary counseling was provided. 4. Screening For Malignant Neoplasm Of Qasim olivas A PSA test was not included in his recent labs; the patient will get it done in the near future, follow up with urology Discussion Notes I reviewed the patient's elevated fasting blood sugar with him and encouraged him to work on his diet and portion sizes, which he stated he understood. We discussed that his PSA level is pending, and he will get that drawn in the near future. I will see him for a follow-up visit in six months. Patient Instructions - Please make changes to your diet and b e mindful of your portion sizes to help manage your blood sugar levels. - Please go to the lab to have your PSA blood test done soon. - Continue to see your urologist and hea rt doctor as you normally do. - Please schedule a follow-up appointmen t in our office in six months. [facility] Medical History CAD (coronary artery disease) Asthma Arthritis Melanoma History of varicocele Elevated cholesterol HTN (hypertension) NIESHA (obstructive sleep apnea) Coronary artery calcification seen on CT scan AA (alcohol abuse) Obesity Surgical History History of melanoma excision Hx of hemorrhoidectomy H/O colonoscopy Family History Mother Alzheimer disease COPD (chronic obstructive pulmonary disease) Father No problems noted. Son No problems noted. Daughter No problems noted. Sister Myocardial infarction Other Mental health disorder Substance use disorder Social History Housing: House Alcohol intake: former Patient Tobacco Use Status: Former Tobacco user Tobacco use type: Cigar e-Cigarette/Vaping Use: Never Used Second Hand Smoke Exposure: No Current occupational status: employed Cognitive needs: No Hearing needs: No Vision needs: No Questionnaire PHQ-9 Over the last 2 weeks, how often have you been bothered by any of the following problems? 1. Little interest or pleasure in doing things: not at all 2. Feeling down, depressed, or hopeless: not at all 3. Trouble falling or staying asleep, or sleeping too much: not at all 4. Feeling tired or having little energy: not at all 5. Poor appetite or overeating: not at all 6. Feeling bad about yourself - or that you are a failure or have let yourself or your family down: not at all 8. Moving or speaking so slowly that other people could have noticed. Or the opposite - being so fidgety or restless that you have been moving around a lot more than usual: not at all 9. Thoughts that you would be better off or of hurting yourself in some way: not at all Depression Screening Interpretation: Negative Depression Screening Done: Yes 99718 - PHQ-9 Billing: Yes Source: Developed by Drs. Frankie Guillen, Atiya Stafford, Torito Wagner and colleagues, with an educational kyler from [employer]. Thrive Questionnaire Date Thrive assessed: 01/27/25 I am a: Patient What is your living situation today?: I have a steady place to live Within the past 12 months, did the food you bought not last and you didn't have the money to get more?: Never true Within the past 12 months, did you worry whether your food would run out before you got money to buy more?: Never true Do you have trouble paying for medicines?: Yes Do you have trouble getting transportation to medical appointments?: No Do you have trouble paying your heating and electricity bill?: Yes Do you have trouble taking care of your child, family member or friend?: No Do you have trouble with day-to-day activities such as bathing, preparing meals, shopping, managing finances, etc.?: No Are you currently unemployed and looking for a job?: No Are you interested in more education?: No Please select the resources that you would like help with: None Currently or been in a relationship where the following occur: No concerns reported THRIVE Score: 1 REBEKA-7 AMB Questionnaire REBEKA-7 Date REBEKA - 7 assessed: 01/27/25 Source: Developed by Drs. Frankie Guillen, Atiya Stafford, Torito Wagner and colleagues, with an educational kyler from [employer]. Physical exam (Primary Care) Vital Signs: Last Vital Signs Temp 97.8 F 06/06/25 15:49 Pulse 67 06/06/25 15:49 Resp 16 06/06/25 15:49 BP 114/80 06/06/25 15:49 Pulse Ox 95 06/06/25 15:49 Oxygen Delivery Method Room Air 06/06/25 15:49 BMI result Body Mass Index 36.0 Tobacco/Smoking Status: Tobacco use Status Tobacco use date assessed 06/06/25 06/06/25 15:54 Patient Tobacco Use Status Former Tobacco user 06/06/25 15:54 Tobacco use type Cigar 06/06/25 15:54 e-Cigarette/Vaping Use Never Used 06/06/25 15:54 Depression Screening Interpretation: Negative Thrive Assessment: Date of Thrive Assessment Date Thrive assessed 01/27/25 06/06/25 15:54 Currently or been in a relationship where the following occur: No concerns reported Coding Level of Care Code Est Pt Prev Care 40-64y(04620) Diagnoses Screening PSA (prostate specific antigen) Z12.5 Physical exam Z00.00 Additional Codes PHQ-9 - 46635 - PHQ-9 Billing: Yes ([id number]) Assessment & Plan Assessment & Plan (1) Screening PSA (prostate specific antigen): Code(s): Z12.5 - Encounter for screening for malignant neoplasm of prostate Category: Medical (2) Physical exam: Code(s): Z00.00 - Encounter for general adult medical examination without abnormal findings Category: Medical Plan . Orders: Orders Prostate Specific Antigen Scr Today Z12.5 - Encounter for screening for malignant neoplasm of prostate Medications: New budesonide-formoterol 80-4.5 mcg/actuation (Symbicort) 1 inh inhalation BID 10.2 grams 0RF budesonide-formoterol 80-4.5 mcg/actuation (Symbicort) 1 inh inhalation BID 10.2 grams 0RF Discontinued Breo Ellipta 200-25 mcg/dose (fluticasone furoate-vilanterol) Discontinued Reason: Doctor's Order 1 ea PO DAILY 60 ea 6RF NS
--- OUTSIDE RECORDS SUMMARY | 2025-06-06 17:45 | XMS_ITS | Clinical Summary ---
Author Organization [employer] Address [address] [place] [address] Care Team Providers Care Music Mixer Name Role Phone Unavailable Primary Care Provider [...]
== END 2025-06-06 16:45 | disposition home or self-care (01) ==
LOC: HO.HMCC 15:46
PROVIDERS: PCP Nurse Practitioner Family; Visit Provider Nurse Practitioner Family
DX: Z00.00 Encounter for general adult medical examination without abnormal findings (principal); Z12.5 Encounter for screening for malignant neoplasm of prostate